=== PATIENT | male | born 1960 | race Caucasian/White ===

== ENCOUNTER → 2016-08-14 | Outpatient (CLI) | payer BC ==
[~2016-08-14] MED LIST: ACETAMINOPHEN325 M1 PO; ANDROGEL5 GM TOP; ANDROGEL75 GM TOP; CARAFATE 1 GM TA1 G1 PO; CEFAZOLIN 1GM VI1 G1 IV; CELEBREX 200 M200 M1 PO; CELEBREX 200 M200 MG PO; CLOBEX118 ML TOP; CORTEF5 MG PO; DILAUDID-H10 MG/1 M1 SUBQ; ENBREL 25 MG KI25 M1 SC; ENBREL INJ; ERYTHROMYCIN250 MG PO; FOLIC ACID1 MG PO; GLUCOPHAGE XR500 MG PO; GLUCOSAMIN-CHO1 EACH PO; HUMIRA20 MG/0.4 SQ; HYDROCODON-ACE1 EAC5 PO; HYDROMORPHO2 MG/1 M5 INTRATHECA; KEFLEX500 MG PO; LISINOPRIL10 MG PO; LYRICA 50 MG50 MG PO; MEDROLDOSEPACK PO; METFORMIN; MIRALAX17 GM PO; MORPHINE 2 IT; NEURONTIN 300300 M1 PO; ORENCIA125 MG/1 M SQ; PERCOCET 10-321 EACH PO; PERCOCET 2.5-31 EACH PO; PERCOCET 7.5-31 EACH PO; PROTONIX IV40 MG PO; PROTONIX40 M2 PO; RED YEAST RICE600 MG PO; RESTASIS1 EACH OPHTHALMIC; ROBAXIN500 MG PO; SINUS RELIEF15 ML SPRAY; STELARA90 MG/1 ML INJECTION; TOPICAL CREAM; TRAMADOL 50 MG50 MG PO; VALIUM10 MG PO; VALIUM2 MG PO; VITAMIN D400 UNIT/1 PO; WELCHOL 625 MG625 MG PO; XIIDRA1 EACH OP; ZOFRAN4 MG PO; [UNRECOGNIZED DRUG - CODE] PO; [UNRECOGNIZED DRUG - OTHER] INJ; hydromorphone IT
--- NOTE | ~2016-08-14 | HPC ---
[facility] [place] [address] PAIN MANAGEMENT CONSULTATION Name: SIMÓN PARHAM Room #: REG CLI M.Celena.#: [id number] Admission: 08/14/16 Attend Phys: Rio Sheehan MD Discharge: Date of : 56 Report #: [id number] THIS REPORT FOR: //name// CC: Rio Trinidad MD DATE OF SERVICE: 08/14/2016 Followup visit for management of intrathecal infusion pump. The patient returns today to the pain clinic to refill his pump. Last time in March. At that time, I felt he was severely depressed, very dysphoric and seemed despondent and hopeless. We counseled a bit during that visit as well as provided his medication and he was directed towards wellness programs, exercise and remaining active. Today, he presents having lost 20 pounds. 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 His conversation is more positive and upbeat. I think the change is related to his weight loss and his improvement in general activity. Hopefully, this will continue. He follows with Dr. Rasheed Trinidad, who provides many of his medications. I have been providing under our agreement. His intrathecal medication has been no oral medications. He is on dose hydromorphone at 4.5 mg a day and we will stick to that for right now. PHYSICAL EXAMINATION: NEUROLOGIC: Affect is pleasant. shows no signs of anxiety or depression today. VITAL SIGNS: His blood pressure is 135/80, heart rate is 80. MUSCULOSKELETAL: Moves easily from a sitting to standing position, ambulates to the examining table without difficulty. HEENT: He does have significant conjunctivitis, which he says is related to a condition that is followed by Dr. Chamorro. He is on a biologic medication and I questioned him about Sjogren's syndrome. This was a new term for him. CARDIAC: Rhythm is regular. CHEST: Clear. IMPRESSION: 1. Chronic intractable low back pain with post laminectomy syndrome. 2. Depression, much improved. 3. Osteoarthritis, bilateral hips. 4. Management of intrathecal infusion pump with refill and reprogramming. DESCRIPTION OF PROCEDURE: Skin was prepped with ChloraPrep. Skin anesthetized [facility] [address] [place] [address] PAIN MANAGEMENT CONSULTATION Name: SIMÓN PARHAM Room #: REG [facility].#: [id number] Admission: 08/14/16 Attend Phys: Rio Sheehan MD Discharge: Date of : 56 Report #: [id number] and a 22-gauge non-coring needle advanced into the pump. Old medication was removed and discarded. He was appropriate for programmed amount. We received 2.2 mL and that was exactly what was programmed. It was discarded appropriately. Pump was then refilled with hydromorphone 15 mg per mL and reprogramming session was performed. This was all checked. Copy was given to the patient. He was discharged with a followup visit scheduled in about 4-6 months. By: [id number] Rio Sheehan MD /juliana
== END | disposition home or self-care (01) ==
LOC: PAIN 06:48
DX: M96.1 Postlaminectomy syndrome, not elsewhere classified (principal); G89.29 Other chronic pain; F32.89 Other specified depressive episodes; M16.0 Bilateral primary osteoarthritis of hip; G47.33 Obstructive sleep apnea (adult) (pediatric); Z88.8 Allergy status to other drugs, medicaments and biological substances; Z98.890 Other specified postprocedural states

== ENCOUNTER → 2016-10-26 | Outpatient (CLI) | payer BC | LOC: SLEEPLAB 12:39 | DX: G47.33 Obstructive sleep apnea (adult) (pediatric) (principal) ==

== ENCOUNTER → 2016-12-14 | Outpatient (CLI) | payer BC ==
[~2016-12-14] VITALS: Ht 172.7 cm; Wt 85.5 kg
--- NOTE | ~2016-12-14 | HPC ---
[facility] [address] [place] [address] PAIN MANAGEMENT CONSULTATION Name: SIMÓN PARHAM Room #: REG CLI M.R.#: [id number] Admission: 12/14/16 Attend Phys: Rio Sheehan MD Discharge: Date of : 56 Report #: [id number] THIS REPORT FOR: //name// CC: Rio Trinidad MD DATE OF SERVICE: 12/14/2016 Followup visit for management of intrathecal infusion pump. The patient presents back to the pain clinic today in followup for me to refill his pump. I see him at intervals of roughly 120 days. We have had a longstanding relationship. His current infusion is hydromorphone 4.5 mg a day and this has managed his pain fairly well. He has had a number of medical issues well documented and followed by Dr. Trinidad including hypertension and depression. He has had some sleep issues as well. Since last visit here, he has been experiencing what he describes as blackout spells. These by description are more than just diversion and distraction. He will be he has "checked out" for a short time and he has no recollection. He also reports to me that he is experiencing some short term memory loss and is having trouble with names. These have also been associated with dizziness. The most concerning of these spells occurred when he was driving. That makes him I think he needs to follow up with Dr. Trinidad and perhaps we should have him see a neurologist. I did review his medications today to see if we can come up with potential medication related cause. Because of his poor sleep, he was referred for a sleep study to [facility]. Dr. Tulio Carrillo recommended the study. The patient felt that the study was suboptimal and may pursue a second study elsewhere. He had questions today about the effect of his intrathecal opioids on the sleep study and without question, there will be some effect on breathing even with intrathecal opioids, although we feel that it is much less than if he was on equipotent oral opioids. He has done well for many years on these medications and I do not believe that he has any interest in coming off of intrathecal opioids given the benefits he has had for pain control. MEDICATIONS: Currently Stelara, vitamin D, Clobex, Restasis, MiraLax, AndroGel, red yeast, Welchol, Protonix, he has oxycodone, but takes it very infrequently only 2-3 in the last month or so. PHYSICAL EXAMINATION: He has lost quite a bit of weight, he is down to 188.6 and this is purposeful. He looks good, but he has not worked out very much so. His muscle mass is also diminished. He plans to start a gradual weight program and will be cautious. Much of his back problems he feels is from a previous [facility] [address] [place] [address] PAIN MANAGEMENT CONSULTATION Name: SIMÓN PARHAM Room #: REG CLI ..#: [id number] Admission: 12/14/16 Attend Phys: Rio Sheehan MD Discharge: Date of : 56 Report #: [id number] weight program. Blood pressure is 123/83, heart rate is 85, and respirations 14. Pump is in the right lower abdomen, nontender. He has some diffuse shoulder pain and knee pain that he scores as a 4-5 today. Some pain and numbness radiating into the anterior thigh, which is likely meralgia paresthetica. IMPRESSION: 1. Chronic intractable back pain. 2. Management of intrathecal infusion pump. PROCEDURE: Refill of intrathecal infusion pump reprogramming. Skin was prepped with ChloraPrep, skin anesthetized and a 22-gauge non-coring needle advanced in the pump. Old medication removed and discarded. We had nearly exactly what we expected. 3.4 reservoir volume about 3.2 was retrieved and discarded per protocol. Pump was then refilled with hydromorphone and reprogrammed to provide 4.5 mg per day. Low reservoir alarm date is now 04/16/2017, and his SALVATORE is 51 months on his second pump. Follow up visit planned in 2018. <ELECTRONICALLY SIGNED> By: Rio Sheehan MD 12/15/16 1322 1601 51 Rio Sheehan MD /nt
[2016-12-14 12:49] VITALS: BP 123/83
== END | disposition home or self-care (01) ==
LOC: PAIN 07:08
DX: Z45.1 Encounter for adjustment and management of infusion pump (principal); G89.29 Other chronic pain

== ENCOUNTER → 2017-04-16 | Outpatient (CLI) | payer BC ==
[~2017-04-16] VITALS: Ht 172.7 cm; Wt 88.2 kg
[~2017-04-16] MED LIST changes: +CLOMIPHENE CITR50 MG PO; +NUVIGIL250 MG PO
--- NOTE | ~2017-04-16 | HPC ---
[facility] [address] [place] [address] PAIN MANAGEMENT CONSULTATION Name: SIMÓN PARHAM Room #: REG CLI M.R.#: [id number] Admission: 04/16/17 Attend Phys: Rio Sheehan MD Discharge: Date of : 56 Report #: [id number] THIS REPORT FOR: //name// CC: Rio Trinidad MD DATE OF SERVICE: 04/16/2017 Followup visit for refill of intrathecal infusion pump and counseling regarding chronic pain. The patient presents to the pain clinic today and reports that he is having harder and harder time. 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 It is really hard for him to get around in the car. Riding in the car is perhaps his most painful activity and this is one of the more regular things he has to do in his job and he has to travel. He has been taking additional pain medications prescribed by Dr. Trinidad and this is affected his thoughts and he has at time had trouble with short-term memory. He is concerned about that. He has an intrathecal pump that is providing hydromorphone. We have kept its dose fairly steady. He feels that it affects his breathing at night when he is at higher dose and we respected that assessment. He has had several sleep studies and knows that his sleep is disrupted at times. He has struggled at times in the past with depression and anxiety. He seems to be better at this time with the current regimen of medications that are balanced by Dr. Trinidad. Today, he reports his pain score as a 6/10, worse with standing across his low back radiating down into his groin and his legs. PHYSICAL EXAMINATION: Blood pressure is 124/74, heart rate 72, respirations are 16 and BMI is 29.6. He has lost a bit of weight. He is pleasant, alert and oriented. Does not appear to be anxious or depressed today. He has tenderness across his low back. He has pain into his groins. He has bilateral straight leg raising discomfort. IMPRESSION: 1. Chronic intractable back pain. 2. Management of intrathecal infusion. I have refilled the intrathecal infusion pump today and reprogrammed it. PROCEDURE: Skin was prepped with ChloraPrep and anesthetized. A 22-gauge non-coring needle advanced to pump. Old medication removed and discarded. Pump [facility] [address] [place] [address] PAIN MANAGEMENT CONSULTATION Name: SIMÓN PARHAM Room #: REG CL Carlos.#: [id number] Admission: 04/16/17 Attend Phys: Rio Sheehan MD Discharge: Date of : 56 Report #: [id number] was refilled with hydromorphone 15 mg per mL and reprogramming session performed. His next alarm date was noted on the medical record and he was given a copy of the programming information. He was given additional counseling about perhaps taking a disability from his work. I will see him back in the pain clinic in 2-3 months for pump refill. I do think that it is getting much harder and more challenging for the patient to continue at his job. <ELECTRONICALLY SIGNED> By: Rio Sheehan MD 04/25/17 1640 [id number] Rio Sheehan MD /nt
[2017-04-16 13:25] VITALS: BP 124/64
== END | disposition home or self-care (01) ==
LOC: PAIN 02-02 07:25
DX: Z45.1 Encounter for adjustment and management of infusion pump (principal); F32.9 Major depressive disorder, single episode, unspecified; F41.9 Anxiety disorder, unspecified; G89.29 Other chronic pain

== ENCOUNTER → 2017-06-12 | Outpatient (CLI) | payer BC ==
[~2017-06-12] VITALS: Ht 170.2 cm; Wt 90.5 kg
[~2017-06-12] MED LIST changes: -CLOMIPHENE CITR50 MG PO; -NUVIGIL250 MG PO
--- NOTE | ~2017-06-12 | HPC ---
[facility] [address] [address] PAIN MANAGEMENT CONSULTATION Name: SIMÓN PARHAM Room #: REG CLI MMeng.#: [id number] Admission: 06/12/17 Attend Phys: Rio Sheehan MD Discharge: Date of : 56 Report #: [id number] THIS REPORT FOR: //name// CC: Rio Trinidad DATE OF SERVICE: 06/12/2017 Followup visit for intrathecal pump adjustment due to increasing pain and consultation regarding chronic pain. The patient returns to the pain clinic today for an adjustment of his intrathecal infusion pump. His pain is worsening. He scores it as an 8/10. He describes pain across his low back and occasionally into his legs. He also has pain into his hips described as crushing. It is hard for him to stand or sleep on his side. He is able to get relief from his intrathecal pump and he is grateful for that. It is harder and harder for him to travel in the car. He is hoping that he may be able to back off on work. He is considering a disability. PAST HISTORY: Significant for two back surgeries, two shoulder surgeries, repair of a knee injury and ulnar nerve surgery in 2012. His intrathecal pump was placed over 10 years ago ____ in 2006. He suffered from some hypertension. He has had situational depression in the past and we had a long discussion today about his past battles with pain. We talked about the biopsychosocial components of pain and the common finding of low mood and depression that can be associated with pain. He feels that he has a handle on this and he also feels that his depression should be blamed on his antidepressant medication to which he had a paradoxical response. He has been better off of antidepressants, but as noted has had periods of time where the pain has led to more challenges. I did not provide any oral medication for him. PHYSICAL EXAMINATION: He is pleasant, alert and oriented. He has lost some weight. His BMI is 31. His blood pressure is 116/66, heart rate is 61 and respirations 16. He moves easily from sitting to standing position. He has tenderness throughout the neck and upper back. He has pain across the low back from his incisions. He has a pump in the right lower quadrant of the abdomen that is nontender. IMPRESSION: 1. Chronic intractable pain with multiple generators, primarily back and neck and shoulder pain as well. 2. Management of intrathecal infusion pump. [facility] [address] [place] [address] PAIN MANAGEMENT CONSULTATION Name: SIMÓN PARHAM Room #: REG CLI [facility]#: [id number] Admission: 06/12/17 Attend Phys: Rio Sheehan MD Discharge: Date of : 56 Report #: [id number] PROCEDURE: The pump was reprogrammed to provide an increase of 11% to his hydromorphone from 4.5 mg a day to 5.0 mg per day. His new reservoir alarm date is 08/12. He was discharged. A 25-minute followup visit with counseling plus reprogramming. By: [id number] Roi Sheehan MD /nt
[2017-06-12 11:08] VITALS: BP 116/66
== END | disposition home or self-care (01) ==
LOC: PAIN 07:09
DX: Z45.1 Encounter for adjustment and management of infusion pump (principal); G89.29 Other chronic pain; Z96.9 Presence of functional implant, unspecified; G47.33 Obstructive sleep apnea (adult) (pediatric); Z91.040 Latex allergy status; Z88.8 Allergy status to other drugs, medicaments and biological substances; Z79.891 Long term (current) use of opiate analgesic

== ENCOUNTER → 2017-08-09 | Outpatient (CLI) | payer BC ==
[~2017-08-09] VITALS: Ht 170.2 cm; Wt 89.4 kg
[~2017-08-09] MED LIST changes: +CLOMIPHENE CITR50 MG PO
--- NOTE | ~2017-08-09 | HPC ---
[facility] [address] [address] PAIN MANAGEMENT CONSULTATION Name: SIMÓN PARHAM Room #: REG CLI GlennaNishCelena.#: [id number] Admission: 08/09/17 Attend Phys: Rio Sheehan MD Discharge: Date of : 56 Report #: [id number] THIS REPORT FOR: //name// CC: Rio Trinidad DATE OF SERVICE: 08/09/2017 Followup visit for management of intrathecal infusion pump with refill. The patient returns to pain clinic today with his . He is here for refill of his intrathecal pump, which is infusing monotherapy hydromorphone. He is now retired. We talked about his plans. He has an appointment with Dr. Marques to evaluate an MRI which has just been taken. He has pain right at the base of his lumbar spine. It is likely that some of this pain is related to the L5-S1 level where he has an artificial disk and it is not fused. There may be hypermobility in that region. I told him that I would be happy to review those films as well. He has been told that he may have some myelopathy. He was evaluated today and was found to be normal in the upper and lower extremities as far as reflexes goes. At one time, there was some concern due to his thoracic disk protrusions. He had some concerns at T11-T12 as well as at T7-T8. He has had laminectomy in that region and the canal should be opened. PHYSICAL EXAMINATION: GENERAL: He has lost some weight and looks a bit more fit. His affect today is pleasant without signs of depression. VITAL SIGNS: Blood pressure 131/82, heart rate 71, respirations 16. Pain intensity 8-9. BMI 30.8. EXTREMITIES: Tenderness throughout his scars and also at the base of the scar in the lumbosacral region. He has pain with forward flexion and extension. Deep tendon reflexes in the upper extremity and lower extremity are 1+ with no evidence of hyperreflexia. IMPRESSION: 1. Chronic low back pain with multiple pain generators in the thoracic and lumbar spine primarily today. He did not mention his shoulder. 2. Management of intrathecal infusion pump with refill and reprogramming. PROCEDURE: Skin was prepped with ChloraPrep. Skin anesthetized and a 22-gauge non-coring needle advanced in the intrathecal pump. Old medication removed and discarded. Pump refilled with hydromorphone 50 mg per mL and a reprogramming [facility] [address] [place] [address] PAIN MANAGEMENT CONSULTATION Name: SIMÓN PARHAM Room #: REG CLI MR#: [id number] Admission: 08/09/17 Attend Phys: Rio Sheehan MD Discharge: Date of : 56 Report #: [id number] session performed to provide a daily infusion of 5 mg of hydromorphone. Low reservoir alarm date is now on 11/29/2017. His SALVATORE is 44 months. By: [id number] [id number] MD mark Marte
[2017-08-09 13:01] VITALS: BP 131/82
== END | disposition home or self-care (01) ==
LOC: PAIN 06:55
DX: Z45.1 Encounter for adjustment and management of infusion pump (principal); G89.29 Other chronic pain; Z68.30 Body mass index [BMI] 30.0-30.9, adult

== ENCOUNTER → 2017-11-26 | Outpatient (CLI) | payer BC ==
[~2017-11-26] VITALS: Ht 172.7 cm; Wt 86.6 kg
[~2017-11-26] MED LIST changes: +NUVIGIL250 MG PO
--- NOTE | ~2017-11-26 | HPC ---
[facility] [address] [address] PAIN MANAGEMENT CONSULTATION Name: SIMÓN PARHAM Room #: REG CLI Carlos.#: [id number] Admission: 11/26/17 Attend Phys: Rio Sheehan MD Discharge: Date of : 56 Report #: [id number] THIS REPORT FOR: //name// CC: POOJA Trinidad DATE OF SERVICE: 11/26/2017 Followup visit for chronic low back pain, post-laminectomy syndrome with radiculopathy. The patient presents to pain clinic today with his . 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 He complains of pain once again in multiple locations. He has, however, retired and seems to be more relaxed. He seems less depressed and was actually joking and upbeat today. His pain is mostly in his very low back radiating into his hips, and he describes it as a crushing, burning sensation. Another descriptor is of sensation like sandpaper to his hips. Intensity 6-7/10. Since losing weight and taking disability, he has done better, but is constantly looking for other ways to get his pain under better control. We in the past have talked about spinal cord stimulation, but today, I spent 25 minutes reviewing it with him in great detail, talking about 4 different companies, now 5 actually, that are providing these devices and the pros and cons, risks and benefits. I think he is a reasonable candidate, and he would be actually the third patient in our practice who might go forward with a spinal cord stimulation trial while already receiving medication through an intrathecal pump. I saw one of those patients today in the clinic who had a dramatic and remarkable improvement in her leg pain once the spinal cord stimulator was placed. We have been able to limit some of her oral medications that would be a goal also for check. 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 VITAL SIGNS: His blood pressure is 136/77, heart rate 57, respirations 14, his BMI is now 29. He has done a nice job of losing weight and dieting. Moves easily from sitting to standing position. He has some restrictions in range of motion of the lumbar spine. He has local tenderness across the scar in the back. He has positive straight leg raising, reproduces some pain into the hips. It does not radiate much further. IMPRESSION: 1. Chronic low back pain with radiculopathy, post-laminectomy syndrome. [address] [address] PAIN MANAGEMENT CONSULTATION Name: SIMÓN PARHAM Room #: REG CLI Devyn#: [id number] Admission: 11/26/17 Attend Phys: Rio Sheehan MD Discharge: Date of : 56 Report #: [id number] 2. Management of intrathecal infusion pump, which will require refill today. PLAN: 1. I will start the process for preauthorization for spinal cord stimulator trial. 2. Refill and reprogramming. Skin was prepped with ChloraPrep and anesthetized. A 22-gauge non-coring needle advanced into the intrathecal pump. Old medication was removed and discarded. Pump was refilled with hydromorphone 15 mg/mL. Reprogramming session was performed and checked by myself and the nurse. No adjustments in his medication dose at this time. Daily dose will be hydromorphone 5 mg per day, and his next refill is scheduled for 03/18/2018. We may have completed his trial by that time. Followup visit planned as needed. By: [id number] Rio Sheehan MD /nt
[2017-11-26 12:39] VITALS: BP 136/77
== END | disposition home or self-care (01) ==
LOC: PAIN 07:37
DX: Z45.1 Encounter for adjustment and management of infusion pump (principal); M54.16 Radiculopathy, lumbar region; M96.1 Postlaminectomy syndrome, not elsewhere classified; G89.29 Other chronic pain; Z79.891 Long term (current) use of opiate analgesic; G47.33 Obstructive sleep apnea (adult) (pediatric); Z91.040 Latex allergy status; Z88.8 Allergy status to other drugs, medicaments and biological substances; Z79.899 Other long term (current) drug therapy

== ENCOUNTER → 2018-02-04 | Outpatient (CLI) | payer BC ==
[~2018-02-04] VITALS: Ht 170.2 cm; Wt 87.1 kg
[~2018-02-04] MED LIST changes: +ACYCLOVIR 200200 MG PO; +ACYCLOVIR15 GM TOP; +COLESEVELAM HC625 MG PO
--- NOTE | ~2018-02-04 | HPC ---
[facility] [place] [address] PAIN MANAGEMENT CONSULTATION Name: SIMÓN PARHAM Room #: REG CLI MMeng.#: [id number] Admission: 02/04/18 Attend Phys: Rio Sheehan MD Discharge: Date of : 56 Report #: [id number] THIS REPORT FOR: //name// CC: Rio Trinidad MD DATE OF SERVICE: 02/04/2018 Followup visit for planned spinal cord stimulation trial. The patient is in the clinic today in a gown, ready to begin his spinal cord stimulation trial. Before we began, he told us that he had had a pussy-looking substance coming from underneath the toe on his right foot and that he had been soaking it all weekend long. I examined the toe. There is redness, but no obvious signs of suppuration. Nonetheless, given the potential risk for infection seating the epidural space even with preoperative antibiotics, I have elected to postpone his elective spinal cord stimulator lead placement trial. We have discussed this on multiple visits in the past. The patient and his , however, used the opportunity of their visit today to review the procedure in detail to discuss the various providers of intrathecal therapies including [employer], [employer] and Nevro. There were multiple questions asked and answered about the benefits and risks of percutaneously placed permanent leads versus paddle leads, which require a small laminotomy. Potential risks including infection, failure of therapy and unreasonable expectations were reviewed in great detail. Time spent in counseling the patient and his today was 45 minutes. Our plan is to postpone placement. I do not feel at this point in time, he needs an antibiotic for his toe, but we will discuss with Infectious Disease. I would like to wait at least 7-10 days before we consider implant once again. The risk of infection remains one of the greatest setbacks in this therapy, we must be cautious and diligent. Followup visit is scheduled once all criteria have been met. We will place a trial at that time. Current plan is to go forward with a Nevro trial and if so, may consider percutaneous lead plant for MRI safety. He and his will consider the possible option of a Medtronic paddle lead, which is MRI compatibility at this time. A 45-minute consult and followup visit. By: [id number] Rio Sheehan MD /nt
[2018-02-04 07:13] VITALS: BP 116/70
== END ==
LOC: PAIN 00:29
DX: M54.5 Low back pain (principal); M79.671 Pain in right foot; G89.29 Other chronic pain; R23.8 Other skin changes; Z79.899 Other long term (current) drug therapy

== ENCOUNTER → 2018-02-11 | Outpatient (CLI) | payer BC ==
[~2018-02-11] VITALS: Ht 170.2 cm; Wt 89.8 kg
--- NOTE | ~2018-02-11 | HPC ---
[facility] [place] [address] PAIN MANAGEMENT CONSULTATION Name: SIMÓN PARHAM Room #: REG CLI MMeng.#: [id number] Admission: 02/11/18 Attend Phys: Rio Sheehan MD Discharge: Date of : 56 Report #: [id number] THIS REPORT FOR: //name// CC: POOJA Trinidad DATE OF SERVICE: 02/11/2018 PROCEDURE Trial of Nevro spinal cord stimulation (procedure aborted). ANESTHESIA: Versed. INDICATIONS FOR PROCEDURE: Post-laminectomy syndrome with radiculopathy. DESCRIPTION OF PROCEDURE: After delay of last week, the patient is here today for trial of his stimulation. He has had no febrile incidence and all open wounds have healed. We reviewed the procedure once again, risks and benefits, and he is anxious to proceed after much discussion. He was taken to the procedure room and monitored with pulse oximetry and electrocardiogram, blood pressure. He was placed in the prone position. Fluoroscopic guidance was used to assist with the procedure. Skin was prepped and draped in the usual fashion and sterile technique was used throughout. He was given 1 gram of intravenous Ancef prior to the procedure. The skin was anesthetized first on the right just below the T11-T10 interspace. His direct entry midwife is narrow for the Nevro system due to the laminectomy performed at T11-T12. The skin was anesthetized, and a 14-gauge Tuohy type curved epidural needle was advanced into the epidural space with loss of resistance technique. Two attempts were made to advance the needle, but I was unable to advance the needle easily. Saline was injected up to 5 mL into the epidural space. An attempt was once again made. I was able to enter the epidural space on each attempt at that short distance, but the lead would not advance further. The needles were removed. The skin was then anesthetized on the left with 1% lidocaine. The 14-gauge needle was then advanced into the epidural space at that level T10-T11, again entering the epidural space with loss of resistance on 2 separate occasions. Lead advancement was unsuccessful. I could get about 1 cm into the epidural space, but no further. There were no paresthesias. There was no discomfort. We considered further options, which would include typically moving to another interspace. On a caudad direction, we are limited due to his prior laminectomy. In the cephalad direction, we would be too high to allow for the placement of the Nevro leads. I had spent 30 minutes in several attempts to place leads, and at that point, I felt in the best interest of the patient, in the interest of safety that the procedure would be aborted. I informed Jose Juan that our first goal was to do no harm and that I felt that if we proceeded more aggressively that [address] [address] PAIN MANAGEMENT CONSULTATION Name: SIMÓN PARHAM Room #: REG CLI Devyn#: [id number] Admission: 02/11/18 Attend Phys: Rio Sheehan MD Discharge: Date of : 56 Report #: [id number] there was a risk, particularly at the thoracic level when placing a large epidural needle. The drape was removed. Skin cleansed and Band-Aid placed. He was taken to recovery room where ice was applied for 15-20 minutes. I spent time following the procedure again discussing our failure to place a lead to proceed with the trial. Disappointment of course across the board for patient and physician alike. I know in the past Dr. Marques had suggested for patients who are adamant to proceed with a trial that the paddle lead can be placed for trial; however, in my opinion, the scar tissue limiting the placement of the percutaneous lead may also be a challenge for a paddle lead, and I would not advise in that direction. We will of course discuss further options going forward. He has an intrathecal pump, which has been utilized over time. He feels that it causes him to have memory issues, and I reassured him that one of the purposes for the intrathecal pump is to provide small amounts of opioid medication intrathecally which works on the spinal level and has a far fewer central side effects including the central effects. We will continue with those medications at this time. I will follow up by phone tonight and tomorrow to make sure that there were no complications or issues regarding his trial, which was unsuccessful today. By: [id number] Rio Sheehan MD /nt
[2018-02-11 07:08] VITALS: BP 129/78
== END | disposition home or self-care (01) ==
LOC: PAIN 07:01
DX: M54.16 Radiculopathy, lumbar region (principal); M96.1 Postlaminectomy syndrome, not elsewhere classified; G47.30 Sleep apnea, unspecified; Z91.040 Latex allergy status; Z88.8 Allergy status to other drugs, medicaments and biological substances; Z79.899 Other long term (current) drug therapy

== ENCOUNTER → 2018-03-14 | Outpatient (CLI) | payer BC ==
[~2018-03-14] VITALS: Ht 170.2 cm; Wt 93.6 kg
--- NOTE | ~2018-03-14 | HPC ---
[facility] [address] [place] [address] PAIN MANAGEMENT CONSULTATION Name: SIMÓN PARHAM Room #: REG CLI MMeng.#: [id number] Admission: 03/14/18 Attend Phys: Rio Sheehan MD Discharge: Date of : 56 Report #: [id number] THIS REPORT FOR: //name// CC: Rio Trinidad DATE OF SERVICE: 03/14/2018 Followup visit for chronic intractable pain, post-laminectomy syndrome with radiculopathy. The patient returns today for refill and reprogramming of his intrathecal infusion pump. We reviewed once again his failed spinal cord stimulation trial. I would not recommend repeating it. An aggressive approach would be needed with a surgical cutdown above his laminectomy at T11-T12 in order to enter the epidural space above. I would be concerned to more harm than good would come from this more aggressive approach. We were both disappointed that I was not able to enter the epidural space above the level of this lamina. Today, his pain score is 3. He has been undergoing a new treatment with his physical therapist. He sent me the contact information. It is blood flow restriction training. This has received some support by few practitioners. I have asked him to continue to report back to me on how he feels if this is helping his legs. He is trying to prepare himself for possible total joint replacement. He complains in part of arthropathy that involves the knee, worse on the left than the right. He is upbeat and positive today. He and his moved going to [employer] [facility] [employer], getting away from this blizzard winter weather. PHYSICAL EXAMINATION: Pleasant, alert and oriented. No signs of overmedication, depression or anxiety. Pain score 3/10. Moves easily from sitting to standing position, ambulates with a good stable gait. Tenderness across his low back is noted. Tenderness of the knee is also present on the left. Mild crepitus. IMPRESSION: Chronic intractable pain with multiple pain generators including low back, post-laminectomy syndrome and osteoarthritis of the left knee. PROCEDURE: Refill and reprogramming of intrathecal infusion pump. Skin was prepped with ChloraPrep. Skin anesthetized and a 22-gauge non-coring needle advanced in the pump. Old medication removed and discarded. Pump was then refilled with monotherapy hydromorphone 15 mg per mL and reprogramming [address] [address] PAIN MANAGEMENT CONSULTATION Name: SIMÓN PARHAM Room #: REG CLKiran Shepard#: [id number] Admission: 03/14/18 Attend Phys: Rio Sheehan MD Discharge: Date of : 56 Report #: [id number] session was completed. His daily dose of hydromorphone is 3 mg. His next refill is scheduled on 07/04/2018. By: [id number] Rio Sheehan MD /nt
[2018-03-14 09:52] VITALS: BP 133/66
--- NOTE | 2018-03-14 10:06 | NUR ---
Pain Clinic Assessment: 1. History of Osteoarthritis: Right Lower Extremity History of Rheumatoid Arthritis: Not Applicable 2. Height: 5 ft. 7 in. 170.2 cm. Weight: 206.4 lb. oz. 93.623 kg. Patient's BMI: 32.3 3. Vital Signs: BP: 133/66 Pulse: 71 Resp: 16 Temp: 02 Sat: 99 ECG Mon: 4. Pain Intensity: 3 5. Fall Risk: Dizziness: Y Needs help standing or walking: N Fallen in the last 3 months: N Fall risk comments: 6. Patient on Blood Thinner: None 7. History of Hypertension: N 8. Opioid Therapy greater than 6 weeks: Y Opiate Contract Signed: 9. Risk Assessment Tool Provided: DR MARIE 10. Functional Assessment Tool: 11. Recreational Drug Use: Never Drug Type: Tobacco Use: Never Smoker Tobacco Type: Amount or Packs/day: How Many Years: Alcohol Use: Yes Frequency: Special Occasions Quant: 5
== END | disposition home or self-care (01) ==
LOC: PAIN 06:52
DX: Z45.1 Encounter for adjustment and management of infusion pump (principal); M96.1 Postlaminectomy syndrome, not elsewhere classified; G89.29 Other chronic pain; M17.12 Unilateral primary osteoarthritis, left knee; M54.16 Radiculopathy, lumbar region; G47.30 Sleep apnea, unspecified; Z88.8 Allergy status to other drugs, medicaments and biological substances; Z79.899 Other long term (current) drug therapy

== ENCOUNTER → 2018-04-22 | Outpatient (CLI) | payer BC ==
[~2018-04-22] VITALS: Ht 170.2 cm; Wt 97.3 kg
[2018-04-22 13:18] VITALS: BP 145/90
--- NOTE | 2018-04-22 13:46 | NUR ---
Pain Clinic Assessment: 1. History of Osteoarthritis: Right Lower Extremity History of Rheumatoid Arthritis: Not Applicable 2. Height: 5 ft. 7 in. 170.2 cm. Weight: 214.6 lb. oz. 97.342 kg. Patient's BMI: 33.6 3. Vital Signs: BP: 145/90 Pulse: 86 Resp: 16 Temp: 02 Sat: 98 ECG Mon: 4. Pain Intensity: 7-8 5. Fall Risk: Dizziness: N Needs help standing or walking: N Fallen in the last 3 months: N Fall risk comments: 6. Patient on Blood Thinner: None 7. History of Hypertension: N 8. Opioid Therapy greater than 6 weeks: Y Opiate Contract Signed: 9. Risk Assessment Tool Provided: DR MARIE 10. Functional Assessment Tool: 11. Recreational Drug Use: Never Drug Type: Tobacco Use: Never Smoker Tobacco Type: Amount or Packs/day: How Many Years: Alcohol Use: Yes Frequency: Special Occasions Quant:
--- NOTE | 2018-04-29 07:40 | HPC ---
[facility] Justyn [place] [address] PAIN MANAGEMENT CONSULTATION Name: SIMÓN PARHAM Room #: REG CLI M.R.#: [id number] Admission: 04/22/18 ������������������ Attend Phys: Rio Sheehan MD Discharge: ������������������ Date of : 56 Report #: [id number] THIS REPORT FOR: //name// CC: Rio Trinidad DATE OF SERVICE: 04/22/2018 CHIEF COMPLAINT: Followup visit for pump adjustment. The patient made an appointment today to come in to see if we can turn up his intrathecal pump. With the cold weather, he is having some increasing pain, particularly in his low back and hips. The pump has been fairly effective. We talked about perhaps initiating a PTM device. Pain has been worsening as the day goes on. I have agreed to increase his pump settings by about 12%. He has hydromorphone as a monotherapy. I have increased his pump today with the it programmer from 5.0-5.6 and he was discharged. His next refill is now scheduled for before or on 06/26/2018. At that time, I will talk to him about a PTM device. ��������������������������������������������� <ELECTRONICALLY SIGNED> ���������������������������������������� By: Rio Sheehan MD ��������������������������������������������� 04/29/18 0740 [id number] Rio Sheehan MD /nt
== END | disposition home or self-care (01) ==
LOC: PAIN 08:30
DX: Z45.1 Encounter for adjustment and management of infusion pump (principal); M54.5 Low back pain; G89.29 Other chronic pain; G47.33 Obstructive sleep apnea (adult) (pediatric); Z91.040 Latex allergy status; Z88.8 Allergy status to other drugs, medicaments and biological substances; Z87.891 Personal history of nicotine dependence

== ENCOUNTER → 2018-06-24 | Outpatient (CLI) | payer BC ==
[~2018-06-24] VITALS: Ht 170.2 cm; Wt 97.7 kg
[~2018-06-24] MED LIST changes: +METHYLPHENIDATE5 MG PO
--- NOTE | ~2018-06-24 | HPC ---
[facility] [place] [address] PAIN MANAGEMENT CONSULTATION Name: SIMÓN PARHAM Room #: REG CLI MMeng.#: [id number] Admission: 06/24/18 ������������������ Attend Phys: Rio Sheehan MD Discharge: ������������������ Date of : 56 Report #: [id number] THIS REPORT FOR: //name// CC: Rio Trinidad DATE OF SERVICE: 06/24/2018 Followup visit for refill and reprogramming of intrathecal infusion pump and new onset low back pain, left lumbosacral segment. The patient was in clinic today for a 25-minute assessment as well as a refill and reprogramming of his intrathecal infusion pump. He has had significant increases in pain in his low back across the lumbosacral segment over the course of the last 6-8 months. He has had multiple surgeries in his lumbar spine with disk replacements at L5-S1 and L3-L4 followed by fusions of the L3 through the L5 segment. The L5-S1 segment is free from fusion and has some mobility with the artificial disk placement. It is in this region just to the left of midline where he has pain and is likely spondylitic. Today, he reports significant diffuse osteoarthritis involving right knee, right index finger, bilateral shoulders and lumbosacral spondylosis as well as mid thoracic spondylitic pain. His pain intensity is 8/10. He is not a fall risk, nor has he fallen in the last 3 months. He is not taking medication for hypertension nor is he on a blood thinner. He has completed an opioid agreement. Dr. Trinidad provides his oral medications, we manage his intrathecal infusion pump. Denies use of tobacco. Drinks alcohol on special occasions only. PHYSICAL EXAMINATION: GENERAL: Pleasant gentleman. VITAL SIGNS: Blood pressure is 123/69, heart rate 74, respirations 14. He is 5 feet 7 inches 214 pounds, BMI 33.7. MUSCULOSKELETAL: He can independently move from sitting to standing position and walks with mild antalgic features. He has limited range of motion of lumbar spine and tenderness across the left lumbosacral segment. It does not involve the sacroiliac joint nor does it radiate into the hip or down the leg as radiculopathy might. It appears to be fairly well localized. We x-rayed the spine and reviewed his pain while under the fluoroscope. It appears that the pain is located in the area of the L5-S1 facet joint. IMPRESSION: 1. Chronic back pain, post-laminectomy syndrome, failed back syndrome. [facility] [address] [place] [address] PAIN MANAGEMENT CONSULTATION Name: SIMÓN PARHAM Room #: REG CLI M.#: [id number] Admission: 06/24/18 ������������������ Attend Phys: Rio Sheehan MD Discharge: ������������������ Date of : 56 Report #: [id number] 2. Intrathecal infusion pump with refill and reprogramming. 3. Instability at L5-S1 with L5-S1 facet arthropathy. 4. Recurring depression. 5. Sleep disturbance with obstructive sleep apnea. 6. Osteoarthritis with multiple joint involvement. RECOMMENDATIONS: 1. We will bring him back for diagnostic medial branch blocks of the L4 medial branch and the L5 dorsal ramus. This will effectively denervate the L5-S1 facet joint, which is the only mobile joint in the lumbosacral segment in the area of his pain. 2. Refill and reprogramming intrathecal infusion pump. PROCEDURE: Skin was prepped with ChloraPrep and a 22-gauge non-coring needle advanced in the pump. Old medication removed and discarded. Pump was then refilled and reprogrammed without change. He will remain on hydromorphone as monotherapy at a rate of 5.6 mg per day. SALVATORE is in 2020. Followup visit planned for diagnostic medial branch nerve blocks for the unstable L5-S1 facet. ��������������������������������������������� ���������������������������������������� By: ��������������������������������������������� 1251 0710 Rio Sheehan MD /nt
[2018-06-24 10:21] VITALS: BP 123/69
--- NOTE | 2018-06-24 10:50 | NUR ---
Pain Clinic Assessment: 1. History of Osteoarthritis: R KNEE R INDEX FINGER B/L SHOULDERS BACK History of Rheumatoid Arthritis: Not Applicable 2. Height: 5 ft. 7 in. 170.2 cm. Weight: 215.4 lb. oz. 97.705 kg. Patient's BMI: 33.7 3. Vital Signs: BP: 123/69 Pulse: 74 Resp: 14 Temp: 02 Sat: 100 ECG Mon: 4. Pain Intensity: 8-TODAY 5. Fall Risk: Dizziness: N Needs help standing or walking: N Fallen in the last 3 months: N Fall risk comments: 6. Patient on Blood Thinner: None 7. History of Hypertension: N 8. Opioid Therapy greater than 6 weeks: Y Opiate Contract Signed: 9. Risk Assessment Tool Provided: DR MARIE 10. Functional Assessment Tool: 11. Recreational Drug Use: Never Drug Type: Tobacco Use: Never Smoker Tobacco Type: Amount or Packs/day: How Many Years: Alcohol Use: Yes Frequency: Special Occasions Quant: 1-2
== END | disposition home or self-care (01) ==
LOC: PAIN 06:46
DX: Z45.1 Encounter for adjustment and management of infusion pump (principal); G89.29 Other chronic pain; M96.1 Postlaminectomy syndrome, not elsewhere classified; M12.88 Other specific arthropathies, not elsewhere classified, other specified site; G47.33 Obstructive sleep apnea (adult) (pediatric); G47.30 Sleep apnea, unspecified; Z88.8 Allergy status to other drugs, medicaments and biological substances; Z91.040 Latex allergy status; Z79.899 Other long term (current) drug therapy

== ENCOUNTER → 2018-06-27 | Outpatient (CLI) | payer BC ==
[~2018-06-27] VITALS: Ht 170.2 cm; Wt 97.5 kg
--- NOTE | ~2018-06-27 | HPC ---
[address] [address] PAIN MANAGEMENT CONSULTATION Name: SIMÓN PARHAM Room #: REG CLI Carlos.#: [id number] Admission: 06/27/18 ������������������ Attend Phys: Rio Sheehan MD Discharge: ������������������ Date of : 56 Report #: [id number] THIS REPORT FOR: //name// CC: Rio Trinidad MD DATE OF SERVICE: 06/27/2018 Followup visit for medial branch nerve block L4 and dorsal ramus injection L5 for left-sided L5-S1 facet arthropathy. The patient was seen just a few days ago and we scheduled this procedure. He is off all blood thinners. We prepared to proceed with the injection. Reviewed the procedure, the rationale as described in his last visit and we also discussed chronic pain management for about 10-15 minutes [id number] before we went to the room for the procedure. His pain today is consistent with his previous visit. Pain across the lumbosacral segment, pain worse with back extension and localized tenderness left of midline. He has now some right-sided pain, but will treat just the left today. PROCEDURE: Medial branch nerve block L4, L5 dorsal ramus nerve block. After informed consent, he was taken to the fluoroscopic suite, placed prone, skin prepped with ChloraPrep. Skin anesthetized first over the left L5 transverse process. A 25-gauge needle was gently advanced into position at the medial junction with the superior articular process. After negative aspiration, I injected 1 mL of 0.5% bupivacaine mixed with 20 mg of triamcinolone. Needle was removed. C-arm was then adjusted and the sacral ala was identified. Skin anesthetized and a 25-gauge needle advanced into the position at the sacral ala, this overlying the L5 dorsal ramus. After negative aspiration, I injected 1 mL of 0.5% bupivacaine mixed with 20 mg of triamcinolone. He tolerated the procedure well. He was taken to the recovery room for short observation. Prior to discharge from the hospital, he was asked to walk and tried to provoke his pain. He scores his pain at 0. FOLLOWUP VISIT PLAN: We will potentially consider radiofrequency ablation of these nerves in the future if the pain is persistent and resistant to other treatment. ��������������������������������������������� ���������������������������������������� By: ��������������������������������������������� 1421 0550 Rio Sheehan MD /nt
[2018-06-27 08:58] VITALS: BP 121/71
--- NOTE | 2018-06-27 09:11 | NUR ---
Pain Clinic Assessment: 1. History of Osteoarthritis: R KNEE R INDEX FINGER B/L SHOULDERS BACK History of Rheumatoid Arthritis: Not Applicable 2. Height: 5 ft. 7 in. 170.2 cm. Weight: 215.0 lb. oz. 97.524 kg. Patient's BMI: 33.7 3. Vital Signs: BP: 121/71 Pulse: 73 Resp: 14 Temp: 02 Sat: 97 ECG Mon: 4. Pain Intensity: 7-TODAY 5. Fall Risk: Dizziness: N Needs help standing or walking: N Fallen in the last 3 months: N Fall risk comments: 6. Patient on Blood Thinner: None 7. History of Hypertension: N 8. Opioid Therapy greater than 6 weeks: Y Opiate Contract Signed: 9. Risk Assessment Tool Provided: DR MARIE 10. Functional Assessment Tool: 11. Recreational Drug Use: Never Drug Type: Tobacco Use: Never Smoker Tobacco Type: Amount or Packs/day: How Many Years: Alcohol Use: Yes Frequency: Quant:
== END | disposition home or self-care (01) ==
LOC: PAIN 06:49
DX: M47.816 Spondylosis without myelopathy or radiculopathy, lumbar region (principal); G89.29 Other chronic pain; G47.33 Obstructive sleep apnea (adult) (pediatric); M19.90 Unspecified osteoarthritis, unspecified site; Z91.040 Latex allergy status; Z88.8 Allergy status to other drugs, medicaments and biological substances; Z79.899 Other long term (current) drug therapy

== ENCOUNTER → 2018-08-15 | Outpatient (CLI) | payer BC ==
[~2018-08-15] VITALS: Ht 170.2 cm; Wt 94.4 kg
[2018-08-15 09:16] VITALS: BP 108/68
--- NOTE | 2018-08-15 09:19 | NUR ---
Pain Clinic Assessment: 1. History of Osteoarthritis: R KNEE R INDEX FINGER B/L SHOULDERS BACK History of Rheumatoid Arthritis: Not Applicable 2. Height: 5 ft. 7 in. 170.2 cm. Weight: 208.2 lb. oz. 94.439 kg. Patient's BMI: 40.7 3. Vital Signs: BP: 108/68 Pulse: 72 Resp: 16 Temp: 02 Sat: 95 ECG Mon: 4. Pain Intensity: 7 5. Fall Risk: Dizziness: N Needs help standing or walking: N Fallen in the last 3 months: N Fall risk comments: 6. Patient on Blood Thinner: None 7. History of Hypertension: N 8. Opioid Therapy greater than 6 weeks: Y Opiate Contract Signed: 9. Risk Assessment Tool Provided: DR MARIE 10. Functional Assessment Tool: 11. Recreational Drug Use: Never Drug Type: Tobacco Use: Never Smoker Tobacco Type: Amount or Packs/day: How Many Years: Alcohol Use: Yes Frequency: Special Occasions Quant:
--- NOTE | 2018-08-27 17:25 | HPC ---
[facility] Justyn [place]gar [place] [address] PAIN MANAGEMENT CONSULTATION Name: SIMÓN PARHAM Room #: REG CLI MNishCelena.#: [id number] Admission: 08/15/18 ������������������ Attend Phys: Rio Sheehan MD Discharge: ������������������ Date of : 56 Report #: [id number] THIS REPORT FOR: //name// CC: Rio Trinidad MD DATE OF SERVICE: 08/15/2018 Followup visit for low back pain without radiation. The patient returns to the pain clinic today for medial branch nerve blocks. We have performed this once at the L5 dorsal ramus and the L4 medial branch. This would denervate the L5-S1 hypermobile facet joint. He has an artificial disk at the L5-S1 level as well as a fusion above. In the interim, he has had a knee replacement. Surgery went well and he is recovering. His knee is improving, but he says his other pains are worse. His pain overall is a 7/10. He complains of pain in the top of his right foot, but it has only been a month since surgery. I have told him to wait that out, whatever does not make it better. I do not think it is radiculopathy. I do not think it is a nerve injury. I do not think it is anything serious and so, he was given reassurance about that today. He has had chronic pain for years and multiple pain generators. One pain generator seems to resolve another, seems to take its place. We talked about this at some length today. I do not provide his medications, but in the postoperative period, he has been receiving oxycodone 10/325 and has been taking 2 tablets every 4-6 hours up to 12 tablets a day. This is marked increase from his previous dose. I should make note here that it was quite interesting today from a physiologic standpoint. He underwent medial branch nerve blocks on 06/27/2018 before he was on the higher doses of opioids. The procedures were performed without much difficulty and not much discomfort. When we repeated the procedures today per protocol, he exhibited marked hyperalgesia. I can only attribute this to opioid hyperalgesia and have no other answer for why there was such a significant difference in the exact procedure we performed 6 weeks ago. I explained this to him briefly in the procedure room. PHYSICAL EXAMINATION: GENERAL: He is anxious today, a little bit concerned and worried and focusing heavily on his pain generators. He described this condition is miserable. He seems a little pessimistic as I have seen him in the past. He was encouraged. VITAL SIGNS: Blood pressure 108/68, heart rate 72, respirations 16. Height 5 [place] [address] PAIN MANAGEMENT CONSULTATION Name: SIMÓN PARHAM Room #: REG CLI M.R.#: [id number] Admission: 08/15/18 ������������������ Attend Phys: Rio Sheehan MD Discharge: ������������������ Date of : 56 Report #: [id number] feet 7 inches, 208 pounds, BMI 40.7. MUSCULOSKELETAL: Tenderness across the low back and pain with back extension. Minimal pain radiating down the leg. There is some tenderness to the right foot. On a positive note, his right knee is healing nicely. IMPRESSION: 1. Chronic pain, multiple pain generators. 2. Post-laminectomy syndrome. 3. Status post right knee replacement with good initial recovery. 4. L5-S1 spondylosis. RECOMMENDATION: Repeat medial branch nerve block, L4 and dorsal ramus block L5 to isolate the L5-S1 facet joint from diagnostic purposes. Procedure well known to the patient, explained once again. He was taken to fluoroscopic suite for treatment where he was placed prone. Skin was prepped with ChloraPrep. Skin was anesthetized first on the left overlying the target for the L5 dorsal ramus and the L4 medial branch nerve. Again, it should be noted that he was exceptionally hyperalgesic. A 27-gauge needle and a small skin wheal, which is tolerated by nearly all was noted to be exquisitely painful for him today. This is different from when we had seen in the past. I then anesthetized a bit deeper, but because of the procedure was unable to completely anesthetize all the way down to the facet joint. This is usually an area that does not experience much discomfort during needle placement. [place] were advanced into position on the sacral ala and on the medial aspect of the transverse process of L5 at the superior articulating facet. After negative aspiration, I injected 0.5 mL of 0.5% bupivacaine at each location. I then repeated the procedure on the right, which was equally hypersensitive and hyperalgesic. He tolerated the procedure well. He was taken to recovery room where his pain score on the left was scored a 0 and on the right as a 2. He was given a log to keep track of his response, and I will consider radiofrequency ablation of these 2 small nerves to provide relief in the low back. I would prefer to do both sides at the same time, would be several placement of 2 needles one on each side and he could easily tolerate it, we could accomplish a single setting. We will seek preauthorization and go forward with treatment based upon insurance coverage. ��������������������������������������������� <ELECTRONICALLY SIGNED> ���������������������������������������� By: Rio Sheehan MD ��������������������������������������������� 08/27/18 1725 1807 2214 Rio Sheehan MD /juliana
== END | disposition home or self-care (01) ==
LOC: PAIN 06:45
DX: M47.817 Spondylosis without myelopathy or radiculopathy, lumbosacral region (principal); G89.29 Other chronic pain; M96.1 Postlaminectomy syndrome, not elsewhere classified; G47.30 Sleep apnea, unspecified; R07.9 Chest pain, unspecified; Z88.8 Allergy status to other drugs, medicaments and biological substances; Z91.040 Latex allergy status; Z96.651 Presence of right artificial knee joint; Z79.899 Other long term (current) drug therapy

== ENCOUNTER → 2018-09-16 | Outpatient (CLI) | payer BC ==
[~2018-09-16] VITALS: Ht 170.2 cm; Wt 98.5 kg
--- NOTE | ~2018-09-16 | HPC ---
[facility] [place] [address] PAIN MANAGEMENT CONSULTATION Name: SIMÓN PARHAM Room #: REG CLI Carlos.#: [id number] Admission: 09/16/18 ������������������ Attend Phys: Rio Sheehan MD Discharge: ������������������ Date of : 56 Report #: [id number] THIS REPORT FOR: //name// CC: Rio Trinidad MD DATE OF SERVICE: 09/16/2018 Followup visit for chronic pain, multiple pain generators. Post-laminectomy syndrome. Status post L5-S1 disk replacement, status post knee replacement and shoulder arthropathy. Management of intrathecal pump with refill. The patient returns to Pain Clinic today with his . He is in good spirits today. His mood vacillates some. He was somewhat depressed at his last visit. Today, he seems to be doing better. He is less anxious and almost jovial. He describes a surgery, reporting some success. The surgery was performed by Dr. Otto Shoemaker on his right shoulder. Recovery has gone fairly smoothly. Continues to have low back pain, which we reviewed. He had medial branch nerve blocks L4, bilateral and L5 dorsal ramus blocks, bilateral. The diagnostic injections were very helpful. He scored his pain with a marked reduction of about 90% for nearly four hours following the procedure. Would like to go forward with radiofrequency ablation. There would only be four nerves those surrounding the artificial disk where there is mobility. I think we can do this all in one setting. Procedure was explained in detail, risks and benefits. Questions were asked and answered. PHYSICAL EXAMINATION: Pleasant and upbeat today, the change from his last visit. His blood pressure 106/70, heart rate 74, respirations 16, BMI 34. Moves from sitting to standing position. He ambulates with mild antalgic features. Mild pain across the low back with flexion and extension, but this has improved with pain intensity as low as 3. Mild tenderness around the scar. IMPRESSION: 1. Chronic low back pain, post-laminectomy syndrome. Lumbar spondylitic pain involving L5-S1. 2. Chronic pain syndrome with multiple pain generators. 3. Status post right knee replacement. 4. Management of intrathecal infusion pump. PROCEDURE: Refill reprogram intrathecal pump. After informed consent, he was placed in the supine position. Skin prepped with [address] [address] PAIN MANAGEMENT CONSULTATION Name: SIMÓN PARHAM Room #: REG CLI Carlos.#: [id number] Admission: 09/16/18 ������������������ Attend Phys: Rio Sheehan MD Discharge: ������������������ Date of : 56 Report #: [id number] ChloraPrep. Skin anesthetized and a 22-gauge non-coring needle advanced in the pump. Old medication discarded by protocol. Pump was then refilled with hydromorphone 15 mg/mL and reprogramming session performed. No changes were made in his medication. Discharge dose will be 6.7 mg per day. Next refill is scheduled for 12/09/2018. I do not prescribe oral medications for the patient. Radiofrequency will be performed when we have preauthorization. ��������������������������������������������� ���������������������������������������� By: ��������������������������������������������� 1258 [id number] Rio Sheehna MD /nt
[2018-09-16 09:41] VITALS: BP 106/70
--- NOTE | 2018-09-16 09:56 | NUR ---
Pain Clinic Assessment: 1. History of Osteoarthritis: R KNEE R INDEX FINGER B/L SHOULDERS BACK History of Rheumatoid Arthritis: Not Applicable 2. Height: 5 ft. 7 in. 170.2 cm. Weight: 217.2 lb. oz. 98.521 kg. Patient's BMI: 34.0 3. Vital Signs: BP: 106/70 Pulse: 74 Resp: 16 Temp: 02 Sat: 96 ECG Mon: 4. Pain Intensity: 3 5. Fall Risk: Dizziness: N Needs help standing or walking: N Fallen in the last 3 months: N Fall risk comments: 6. Patient on Blood Thinner: None 7. History of Hypertension: N 8. Opioid Therapy greater than 6 weeks: Y Opiate Contract Signed: 9. Risk Assessment Tool Provided: DR MARIE 10. Functional Assessment Tool: 11. Recreational Drug Use: Never Drug Type: Tobacco Use: Never Smoker Tobacco Type: Amount or Packs/day: How Many Years: Alcohol Use: Yes Frequency: Quant:
== END | disposition home or self-care (01) ==
LOC: PAIN 06:49
DX: Z45.1 Encounter for adjustment and management of infusion pump (principal); G89.4 Chronic pain syndrome; M96.1 Postlaminectomy syndrome, not elsewhere classified; M47.897 Other spondylosis, lumbosacral region; G47.30 Sleep apnea, unspecified; Z96.651 Presence of right artificial knee joint; Z79.899 Other long term (current) drug therapy; Z98.890 Other specified postprocedural states; Z79.891 Long term (current) use of opiate analgesic; Z91.040 Latex allergy status; Z88.8 Allergy status to other drugs, medicaments and biological substances

== ENCOUNTER → 2018-10-21 | Outpatient (CLI) | payer BC ==
[~2018-10-21] VITALS: Ht 170.2 cm; Wt 98.4 kg
--- NOTE | ~2018-10-21 | HPC ---
[facility] [place] [address] PAIN MANAGEMENT CONSULTATION Name: SIMÓN PARHAM Room #: REG CLI M..#: [id number] Admission: 10/21/18 Attend Phys: Rio Sheehan MD Discharge: Date of : 56 Report #: [id number] THIS REPORT FOR: //name// CC: POOJA Trinidad DATE OF SERVICE: 10/21/2018 DIAGNOSIS: Chronic low back pain, post-laminectomy syndrome, lumbar spondylitic pain at L5-S1. The patient has a mobile L5-S1 segment in face of multiple fused levels above. He has received 2 diagnostic injections injecting the L4 medial branch and the L5 dorsal ramus on each side with small amounts of bupivacaine. This has been effective in reducing his pain for 90% for about 4 hours. He would like to go forward with radiofrequency ablation. I have discussed the procedure at some length with him, including potential risks, benefits, and challenges in identifying the nerve. He is anxious to proceed. PHYSICAL EXAMINATION: GENERAL: Today, he is pleasant and optimistic. VITAL SIGNS: Blood pressure is 119/75, heart rate 72, respirations 16. EXTREMITIES: He moves from sitting to standing position, ambulates with mild antalgic features. He has pain with forward flexion and extension of the lumbar spine. IMPRESSION: Lumbar spondylosis involving hypermobile L5-S1 segment. PROCEDURE: Bilateral L4 medial branch nerve and L5 dorsal ramus radiofrequency ablation. PROCEDURE: He was taken to the fluoroscopic suite, placed prone, skin prepped with ChloraPrep. We began on the right. Using biplanar fluoroscopic views, I anesthetized the skin and positioned a 20-gauge 10-mm active tip RFK needle into position on the medial border of the L5 transverse process at the articulation of the superior articular process. Multiple adjustments were required and I was unable to adequately obtain good stimulation. I did position the needle, however, at the appropriate landmarks and carefully adjusted the needle depth using lateral views to assure that the needle was not extending into the neuroforamen. I then positioned the L5 dorsal ramus needle nicely into the area of the sacral ala and testing on that needle achieved excellent sensory response at 0.4. Motor testing was then carefully performed, and there was no movement of the lower extremity musculature at 2 Hz up to 1.5. Probe was then removed. [address] [address] PAIN MANAGEMENT CONSULTATION Name: SIMÓN PARHAM JONA Room #: REG CLI Devyn#: [id number] Admission: 10/21/18 Attend Phys: Rio Sheehan MD Discharge: Date of : 56 Report #: [id number] Each needle injected with 1 mL of 1% lidocaine. Probes were replaced. We waited 90 seconds and performed a lesion at 80 degrees for 90 seconds. The slightly curved RFK needle was then rotated 180 degrees and repeated the lesion. A second ablation performed in order to try and capture the elusive medial branch. Before removing the needles, I injected each with 1 mL of 0.5% bupivacaine and 10 mg of triamcinolone. C-arm was then moved to the right. Once again, we found challenges in identifying the L4 medial branch with stimulation. Several passes using the challenging landmarks were attempted. I ultimately positioned the needle in what was felt to be in excellent position, in the medial border of the transverse process and the superior articulating process. The L5 dorsal ramus placement also went smoothly on the right in comparison to the L4 medial branch. I performed the rest of the testing identical to the description above. There were no complications. He tolerated the procedure well and was taken to recovery room. There was a good observation period of 30 minutes. There was no subjective or objective weakness in the lower extremity, and pain was reduced as would be expected with the local anesthetic effect. I am hopeful that we were in good proximity of the nerves. The challenges of performing the procedure on such an operative lumbosacral spine were discussed. We will follow up by phone in 1-2 weeks. No new medications were ordered today. By: [id number] Rio Sheehan MD /nt
[2018-10-21 13:32] VITALS: BP 119/75
--- NOTE | 2018-10-21 13:53 | NUR ---
Pain Clinic Assessment: 1. History of Osteoarthritis: R KNEE R INDEX FINGER B/L SHOULDERS BACK History of Rheumatoid Arthritis: Not Applicable 2. Height: 5 ft. 7 in. 170.2 cm. Weight: 217.0 lb. oz. 98.431 kg. Patient's BMI: 34.0 3. Vital Signs: BP: 119/75 Pulse: 72 Resp: 16 Temp: 02 Sat: 96 ECG Mon: 4. Pain Intensity: 3 5. Fall Risk: Dizziness: N Needs help standing or walking: N Fallen in the last 3 months: N Fall risk comments: 6. Patient on Blood Thinner: None 7. History of Hypertension: N 8. Opioid Therapy greater than 6 weeks: Y Opiate Contract Signed: 9. Risk Assessment Tool Provided: DR MARIE 10. Functional Assessment Tool: 11. Recreational Drug Use: Never Drug Type: Tobacco Use: Never Smoker Tobacco Type: Amount or Packs/day: How Many Years: Alcohol Use: Yes Frequency: Quant:
== END | disposition home or self-care (01) ==
LOC: PAIN 06:55
DX: M47.897 Other spondylosis, lumbosacral region (principal); G89.29 Other chronic pain; M96.1 Postlaminectomy syndrome, not elsewhere classified; Z88.8 Allergy status to other drugs, medicaments and biological substances; Z79.899 Other long term (current) drug therapy

== ENCOUNTER → 2018-11-07 | Outpatient (CLI) | payer BC ==
[~2018-11-07] VITALS: Ht 170.2 cm; Wt 94.7 kg
--- NOTE | ~2018-11-07 | HPC ---
[facility] [place] [address] PAIN MANAGEMENT CONSULTATION Name: SIMÓN PARHAM Room #: REG CLI M..#: [id number] Admission: 11/07/18 ������������������ Attend Phys: Rio Sheehan MD Discharge: ������������������ Date of : 56 Report #: [id number] THIS REPORT FOR: //name// CC: Rio Trinidad MD DATE OF SERVICE: 11/07/2018 Followup visit for chronic low back pain, post-laminectomy syndrome, lumbar spondylosis, status post radiofrequency ablation at L5-S1 segment. The patient returns to pain clinic today, now 2 weeks following his RFL treatment. He is 80-90% better. As is often the case with the patient, he has additional complaints of pain to discuss today. He has pain bilaterally over the trochanter. He has previously been diagnosed with trochanteric bursitis. Although, he has trochanteric bursitis, his overall pain load is down based upon his improvement following the radiofrequency, he would like to continue tapering his intrathecal pump. I have agreed to lower it by 10%. PHYSICAL EXAMINATION: He is a pleasant gentleman. He is wearing dark glasses when I entered the room. He moves independently from sitting to standing position. His gait is mildly antalgic. Minimal pain across the low back at this point in time with minimal tenderness. Bilateral tenderness of the greater trochanter extending down the length of the femur about 4-6 inches on each side. No pain with internal or external rotation of the hip. Straight leg raising is negative for radiculopathy. IMPRESSION: 1. Bilateral trochanteric bursitis. 2. Chronic pain with multiple pain generators. 3. Management of intrathecal infusion pump with reprogramming session. PROCEDURE: Reprogramming session. The program was used to adjust his intrathecal pump down to 10%. He is on monotherapy with morphine at 6 mg per day. We will continue to reduce his dose monthly. I would like to go no faster than that and we will drop him by 10% each time. Within 6 months, he should be down to half his current dose. Followup visit is planned in the pain clinic in [address] [address] PAIN MANAGEMENT CONSULTATION Name: SIMÓN PARHAM Room #: REG CLI Carlos.#: [id number] Admission: 11/07/18 ������������������ Attend Phys: Rio Sheehan MD Discharge: ������������������ Date of : 56 Report #: [id number] I will consider trochanteric bursa injections if his pain is not improved. We discussed simple measures including itnl-ard-rffnaeb analgesics, massage, ice and exercise. ��������������������������������������������� ���������������������������������������� By: ��������������������������������������������� 1726 0158 Rio Sheehan MD /nt
[2018-11-07 14:31] VITALS: BP 133/80
--- NOTE | 2018-11-07 14:36 | NUR ---
Pain Clinic Assessment: 1. History of Osteoarthritis: R KNEE R INDEX FINGER B/L SHOULDERS BACK History of Rheumatoid Arthritis: Not Applicable 2. Height: 5 ft. 7 in. 170.2 cm. Weight: 208.8 lb. oz. 94.711 kg. Patient's BMI: 32.7 3. Vital Signs: BP: 133/80 Pulse: 75 Resp: 16 Temp: 02 Sat: 99 ECG Mon: 4. Pain Intensity: 1 5. Fall Risk: Dizziness: N Needs help standing or walking: N Fallen in the last 3 months: N Fall risk comments: 6. Patient on Blood Thinner: None 7. History of Hypertension: N 8. Opioid Therapy greater than 6 weeks: Y Opiate Contract Signed: 9. Risk Assessment Tool Provided: DR MARIE 10. Functional Assessment Tool: 11. Recreational Drug Use: Never Drug Type: Tobacco Use: Never Smoker Tobacco Type: Amount or Packs/day: How Many Years: Alcohol Use: Yes Frequency: Special Occasions Quant: 3
== END | disposition home or self-care (01) ==
LOC: PAIN 07:02
DX: Z45.1 Encounter for adjustment and management of infusion pump (principal); G89.29 Other chronic pain; M70.62 Trochanteric bursitis, left hip; M70.61 Trochanteric bursitis, right hip; M54.5 Low back pain; M96.1 Postlaminectomy syndrome, not elsewhere classified; M47.896 Other spondylosis, lumbar region; Z98.890 Other specified postprocedural states; Z91.040 Latex allergy status; Z79.899 Other long term (current) drug therapy; Z88.8 Allergy status to other drugs, medicaments and biological substances

== ENCOUNTER 2018-11-10 02:48 | Emergency (ER) | payer BC ==
[~2018-11-10] VITALS: Ht 170.2 cm; Wt 90.7 kg
[2018-11-10 03:17] LABS: ABSOLUTE NEUTROPHILS 3.2 thou/uL (1.4-8.2); ANION GAP 10 mmol/L (7-16); BASOPHILS 0.7 % (0.0-2.0); BUN 19 mg/dL (7-18); CALCIUM 9.2 mg/dL (8.5-10.1); CHLORIDE 104 mmol/L (98-107); CO2 29 mmol/L (21-32); CREATININE 0.9 mg/dL (0.7-1.3); EOSINOPHILS 4.3 % (0.0-3.0); GLUCOSE 109 mg/dL (74-106); HEMATOCRIT 43.7 % (42.0-52.0); HEMOGLOBIN 14.2 gm/dL (14.0-18.0); LYMPHOCYTES 33.2 % (24.0-44.0); MCH 27.4 pg (26.0-34.0); MCHC 32.4 g/dL (28.0-37.0); MCV 84.5 fL (80.0-100.0); MONOCYTES 10.1 % (1.0-8.0); PLATELET COUNT 184 thou/uL (150-400); POLYS 51.7 % (36.0-66.0); POTASSIUM 4.2 mmol/L (3.5-5.1); RBC 5.17 mil/uL (4.50-6.00); RDW 14.3 % (10.5-14.5); SODIUM 143 mmol/L (136-145); WBC 6.2 thou/uL (4.0-11.0)
[2018-11-10 03:25] LABS: TROPONIN-I <0.06 ng/mL (<0.06)
[2018-11-10 06:39] VITALS: BP 125/62
--- NOTE | 2018-11-10 14:30 | EKG ---
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 : 1960 Requested By: Dio Calderon Order Number: [id number] MD: Tigre Walsh Measurements Intervals [place] Rate: 60 P: 34 TN: 212 QRS: 30 QRSD: 88 T: 86 QT: 417 QTc: 417 Interpretive Statements Sinus rhythm Prolonged TN interval Probable anteroseptal infarct, old Compared to ECG 10/29/2017 12:56:11 First degree AV block now present Septal Q waves are now present Electronically Signed On 11-10-2018 14:30:28 CDT by Tigre Walsh [email or web address] ��������������������������������������������� <ELECTRONICALLY SIGNED> ���������������������������������������� By: Tigre Walsh MD, [facility] ��������������������������������������������� 11/10/18 1430 0233 0233 Tigre Walsh MD, [facility] /EPI
--- NOTE | 2018-11-10 14:32 | EKG ---
[address] [address] ELECTROCARDIOGRAM REPORT Name: SIMÓN PARHAM Room #: DEP ER Jane#: [id number] ������������������ Admission: 11/10/18 ������������������ Attend Phys: Discharge: 11/10/18 ������������������ Date of : 56 Report #: [id number] ����������������������������������������������������������������� [id number] THIS REPORT FOR: //name// 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1960 Requested By: Dio Calderon Order Number: [id number] MD: Tigre Walsh Measurements Intervals [place] Rate: 55 P: 38 AR: 155 QRS: -4 QRSD: 104 T: 12 QT: 413 QTc: 395 Interpretive Statements Sinus bradycardia Otherwise normal tracing Compared to ECG 10/29/2017 12:56:11 No significant change was found Electronically Signed On 11-10-2018 14:31:58 CDT by Tigre Walsh [email or web address] ��������������������������������������������� <ELECTRONICALLY SIGNED> ���������������������������������������� By: Tigre Walsh MD, [facility] ��������������������������������������������� 11/10/18 1431 0316 031 Tigre Walsh MD, [facility] /EPI
--- NOTE | 2018-11-10 14:32 | EKG ---
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 : 1960 Requested By: Dio Calderon Order Number: [id number] MD: Tigre Walsh Measurements Intervals [place] Rate: 56 P: 32 SD: 157 QRS: -2 QRSD: 102 T: 21 QT: 397 QTc: 384 Interpretive Statements Sinus bradycardia Otherwise normal tracing Compared to ECG 10/29/2017 12:56:11 SD interval shortened Electronically Signed On 11-10-2018 14:31:41 CDT by Tigre Walsh [email or web address] ��������������������������������������������� <ELECTRONICALLY SIGNED> ���������������������������������������� By: Tigre Walsh MD, [facility] ��������������������������������������������� 11/10/18 1431 0249 0249 Tigre Walsh MD, FACC /EPI
== END 2018-11-10 06:43 | disposition home or self-care (01) ==
LOC: ER 02:48
PROVIDERS: Emergency Medicine
DX: R07.9 Chest pain, unspecified (principal); I10 Essential (primary) hypertension; F32.9 Major depressive disorder, single episode, unspecified; Z90.49 Acquired absence of other specified parts of digestive tract; Z91.040 Latex allergy status; Z91.013 Allergy to seafood; Z88.1 Allergy status to other antibiotic agents; Z88.8 Allergy status to other drugs, medicaments and biological substances

== ENCOUNTER → 2018-11-13 | Outpatient (CLI) | payer BC ==
[~2018-11-13] VITALS: Ht 170.2 cm; Wt 90.7 kg
[~2018-11-13] MED LIST changes: +ASPIRIN325 PO
[2018-11-13 07:27] LABS: HEMOGLOBIN 14.1 gm/dL (14.0-18.0); MCH 27.8 pg (26.0-34.0); MCHC 32.8 g/dL (28.0-37.0); MCV 84.6 fL (80.0-100.0); RBC 5.08 mil/uL (4.50-6.00); RDW 14.5 % (10.5-14.5); WBC 6.6 thou/uL (4.0-11.0)
[2018-11-13 07:29] LABS: CALCIUM 9.3 mg/dL (8.5-10.1); CREATININE 0.9 mg/dL (0.7-1.3); POTASSIUM 4.4 mmol/L (3.5-5.1)
--- NOTE | 2018-11-13 08:14 | EKG ---
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
--- NOTE | 2018-11-13 10:27 | CATHLAB ---
[facility] [address] [place] [address] INVASIVE PROCEDURE REPORT Name: SIMÓN PARHAM Room #: REG [facility]#: [id number] Admission: 11/13/18 Attend Phys: Ian Martinez MD Discharge: Date of : 56 Report #: [id number] THIS REPORT FOR: //name// APPROVED REPORT Study performed: 11/13/2018 08:24:11 Patient Details Patient Status: Out-Patient Room #: The patient is a 58 year-old male Event Personnel Ian Martinez Children'S Service Supervisor, Mukund Guerrero RN RN, Kwesi Dixon Brown, Roberta Monitor Procedures Performed Left Heart Cath w/LT VGram [id number] LHCLV 14511 Initial Mod Sed Same Phys/QHP Gr5y [id number] 49617 Mod Sed Same Phys/QHP Ea [id number] Hemostasis with Hemoband Art Access - R radial artery Indication Positive stress test, Chest pain Risk Factors Hypercholesterolemia, Hypertension Procedure Narrative The Right Wrist^ was infiltrated with 1% Lidocaine subcutaneous anesthesia. A TRANSRADIAL SLENDER 6F GLIDESHEATH KIT #[id number] sheath was inserted into the Right Radial Artery^. Coronary angiography was performed using coronary diagnostic catheters. The right coronary system was accessed and visualized with a JR4 catheter. The left coronary system was accessed and visualized with a JL3.5 catheter. The left ventricle was accessed and visualized with a 5FR PIG 145 ANGLED #[id number] catheter. Left ventriculogram was performed in 30 degree projection. Closure device was deployed with a Fr VASC BAND R 24CM #[id number]. Intraoperative Conscious Sedation Sedation start time: 813 Case end Time: 848 Fentanyl 100 mcg Versed 4 mg Fluoro Time: 5.80 minutes Dose: DAP 6300.00 cGycm2 1527 mGy [facility] [place] [address] INVASIVE PROCEDURE REPORT Name: DIONESIMÓN MINDEN Room #: REG [facility]#: [id number] Admission: 11/13/18 Attend Phys: Ian Martinez MD Discharge: Date of : 56 Report #: [id number] Contrast Type and Amount: Omnipaque 95 ml Coronary Angiography The patient's coronary anatomy is right dominant. Diagnostic Cath Left Main This is a large caliber vessel, patent with no flow-limiting lesions. LAD This is a moderate size caliber vessel, traversing the anterior wall and wrapping around the apex. There is mild disease in the proximal segment, 20-30%. Diagonal 1 This is a moderate size caliber vessel with a 60-70% stenosis in the proximal segment. Circumflex Supplies one moderate size obtuse marginal artery. OM1 There is moderate disease in the proximal segment, 50%. Right Coronary This is a dominant vessel with mild disease in the mid segment, 30%. R PDA This is a patent vessel, with no flow-limiting lesions. RPLV This is a patent vessel, with no flow-limiting lesions. Ramus This is a moderate size caliber vessel, with mild disease at the ostium, 30%. Left Ventriculography The left ventricle is normal in size with normal contractility. The left ventricular ejection fraction is estimated to be 55-60%. Hemodynamics The aortic pressure is 114/71 mmHg with a mean of 89 mmHg. The left ventricular pressure is 122/1 mmHg with a mean of mmHg. The left ventricular end diastolic pressure is 12 mmHg. There was no gradient across the aortic valve upon pullback. Pullback from the left ventricle to the aorta revealed no gradient across the aortic valve. Conclusion 1. There is mild disease in the LAD and RCA. 2. There is a borderline stenosis in the first diagonal artery, recommend medical therapy. 3. There is moderate stenosis in the first obtuse marginal artery. [facility] [address] [place] [address] INVASIVE PROCEDURE REPORT Name: SIMÓN PARHAM Room #: REG CL [facility]#: [id number] Admission: 11/13/18 Attend Phys: Ian Martinez MD Discharge: Date of : 56 Report #: [id number] 4. There is normal LV systolic function. 5. Recommend aggressive risk factor management. <ELECTRONICALLY SIGNED> By: Ian Martinez MD 11/13/18 1027 26 Ian Martinez MD /INF
== END | disposition home or self-care (01) ==
LOC: CATH 06:48
PROVIDERS: Internal Medicine Cardiovascular Disease
DX: R07.9 Chest pain, unspecified (principal); I25.10 Atherosclerotic heart disease of native coronary artery without angina pectoris; I10 Essential (primary) hypertension; E78.00 Pure hypercholesterolemia, unspecified; E78.5 Hyperlipidemia, unspecified; K21.9 Gastro-esophageal reflux disease without esophagitis; F32.9 Major depressive disorder, single episode, unspecified; Z98.890 Other specified postprocedural states; Z79.899 Other long term (current) drug therapy; Z91.040 Latex allergy status; Z88.8 Allergy status to other drugs, medicaments and biological substances

== ENCOUNTER → 2018-12-12 | Outpatient (CLI) | payer BC ==
[~2018-12-12] VITALS: Ht 170.2 cm; Wt 92.5 kg
[~2018-12-12] MED LIST changes: +XIIDRA1 EACH OPHTHALMIC
[2018-12-12 09:43] VITALS: BP 157/86
--- NOTE | 2018-12-12 09:55 | NUR ---
Pain Clinic Assessment: 1. History of Osteoarthritis: R KNEE R INDEX FINGER B/L SHOULDERS BACK History of Rheumatoid Arthritis: Not Applicable 2. Height: 5 ft. 7 in. 170.2 cm. Weight: 204.0 lb. oz. 92.534 kg. Patient's BMI: 31.9 3. Vital Signs: BP: 157/86 Pulse: 77 Resp: 14 Temp: 02 Sat: 98 ECG Mon: 4. Pain Intensity: 3 BACK 7 KNEES 5. Fall Risk: Dizziness: N Needs help standing or walking: N Fallen in the last 3 months: N Fall risk comments: 6. Patient on Blood Thinner: None 7. History of Hypertension: N 8. Opioid Therapy greater than 6 weeks: Y Opiate Contract Signed: 9. Risk Assessment Tool Provided: DR MARIE 10. Functional Assessment Tool: 11. Recreational Drug Use: Never Drug Type: Tobacco Use: Never Smoker Tobacco Type: Amount or Packs/day: How Many Years: Alcohol Use: Yes Frequency: Quant:
--- NOTE | 2019-01-09 12:53 | HPC ---
[facility] [place] [address] PAIN MANAGEMENT CONSULTATION Name: SIMÓN PARHAM Room #: REG CLI [facility].#: [id number] Admission: 12/12/18 Attend Phys: Rio Sheehan MD Discharge: Date of : 56 Report #: [id number] THIS REPORT FOR: //name// CC: Rio Trinidad MD DATE OF SERVICE: 12/12/2018 Followup visit and readjustment of intrathecal infusion pump. The patient returns to pain clinic today for refill and reprogramming of his intrathecal infusion pump. He is working hard at tapering down off of his opioids, both intrathecal and systemic. He has done a good job of both. He has not taken an oral hydrocodone in some time. He would like to reduce his intrathecal hydromorphone by 10% today. Overall, he is doing much better. His affect is pleasant and outgoing, does not seem to be depressed at all. PQRS REVIEW: 1. Diffuse history of osteoarthritis involving knee, shoulders, hands and spondylosis. 2. BMI of 31.9. 3. Vital signs: Blood pressure 157/86, heart rate 77, respirations 14. 4. Pain intensity is 3 in his back, 7 in his knees. 5. He is not a fall risk. 6. No blood thinning medications. 7. History of hypertension. 8. He is on an opioid agreement. We have reviewed the terms of that agreement. 9. Dr. Rasheed Vivi follows him, provides oral pain medications for him, we no longer do that. We manage only his intrathecal pump. 10. Functional assessment score is not taken today. 11. He denies use of tobacco, drinks alcohol in the social setting. IMPRESSION: 1. Chronic pain with multiple pain generators. Post-laminectomy syndrome with radiculopathy, bilateral, stable and improving. 2. Diffuse osteoarthritis and arthropathy. 3. Depression, stable. He seems to be in remission. PROCEDURE: Refill, reprogramming of intrathecal infusion pump. Skin was prepped with ChloraPrep. A 22-gauge non-coring needle advanced in the pump. Old medication removed and discarded per protocol. The pump was then refilled with hydromorphone 15 mg per mL and a reprogramming session reduced the dose by 10% to 5.4 mg per day. [address] [address] PAIN MANAGEMENT CONSULTATION Name: SIMÓN PARHAM Room #: REG CLI [facility].#: [id number] Admission: 12/12/18 Attend Phys: Rio Sheehan MD Discharge: Date of : 56 Report #: [id number] His next refill is scheduled for about 3 months. No medications were ordered. <ELECTRONICALLY SIGNED> By: Rio Sheehan MD 01/09/19 1253 1634 0522 Rio Sheehan MD /nt
== END | disposition home or self-care (01) ==
LOC: PAIN 06:53
DX: Z45.1 Encounter for adjustment and management of infusion pump (principal); G89.29 Other chronic pain; M54.16 Radiculopathy, lumbar region; M96.1 Postlaminectomy syndrome, not elsewhere classified; I10 Essential (primary) hypertension; M19.90 Unspecified osteoarthritis, unspecified site; F32.9 Major depressive disorder, single episode, unspecified; Z79.891 Long term (current) use of opiate analgesic; Z98.890 Other specified postprocedural states; Z91.040 Latex allergy status; Z88.8 Allergy status to other drugs, medicaments and biological substances; Z79.899 Other long term (current) drug therapy; Z79.82 Long term (current) use of aspirin

== ENCOUNTER → 2019-01-09 | Outpatient (CLI) | payer BC ==
[~2019-01-09] VITALS: Ht 170.2 cm; Wt 98.9 kg
[2019-01-09 09:03] VITALS: BP 121/72
--- NOTE | 2019-01-09 12:30 | NUR ---
Pain Clinic Assessment: 1. History of Osteoarthritis: R KNEE R INDEX FINGER B/L SHOULDERS BACK History of Rheumatoid Arthritis: Not Applicable 2. Height: 5 ft. 7 in. 170.2 cm. Weight: 218.0 lb. oz. 98.884 kg. Patient's BMI: 34.1 3. Vital Signs: BP: 121/72 Pulse: 70 Resp: 16 Temp: 02 Sat: 97 ECG Mon: 4. Pain Intensity: 6 5. Fall Risk: Dizziness: N Needs help standing or walking: N Fallen in the last 3 months: N Fall risk comments: 6. Patient on Blood Thinner: None 7. History of Hypertension: N 8. Opioid Therapy greater than 6 weeks: Y Opiate Contract Signed: 9. Risk Assessment Tool Provided: Opioid Risk Tool 10. Functional Assessment Tool: No falls, no assist nec. 11. Recreational Drug Use: Never Drug Type: Tobacco Use: Never Smoker Tobacco Type: Amount or Packs/day: How Many Years: Alcohol Use: Yes Frequency: Special Occasions Quant:
== END | disposition home or self-care (01) ==
LOC: PAIN 01-08 12:21
DX: Z45.1 Encounter for adjustment and management of infusion pump (principal); G89.29 Other chronic pain; M19.90 Unspecified osteoarthritis, unspecified site; M96.1 Postlaminectomy syndrome, not elsewhere classified; M54.10 Radiculopathy, site unspecified; Z79.899 Other long term (current) drug therapy; Z79.82 Long term (current) use of aspirin; Z91.040 Latex allergy status

== ENCOUNTER → 2019-02-03 | Outpatient (CLI) | payer BC ==
[~2019-02-03] VITALS: Ht 167.6 cm; Wt 99.9 kg
[~2019-02-03] MED LIST changes: +REPATHA SY140 MG/1 M SUBQ
--- NOTE | ~2019-02-03 | HPC ---
[facility] [address] [place] [address] PAIN MANAGEMENT CONSULTATION Name: SIMÓN PARHAM Room #: REG CLI [facility].#: [id number] Admission: 02/03/19 Attend Phys: Rio Sheehan MD Discharge: Date of : 56 Report #: [id number] THIS REPORT FOR: //name// CC: Rio Trinidad DATE OF SERVICE: 02/03/2019 Followup visit for chronic pain, osteoarthritis, post-laminectomy syndrome, management of intrathecal infusion pump, trochanteric bursitis. The patient is here today for further decrease of his intrathecal pump. We have been gradually reducing the dose at his request and he has done well. His current infusion is at 4.8 mg per day of hydromorphone. We will reduce it by 10% to 4.3. The pump is providing pain from multiple pain generators including osteoarthritis and chronic back pain. It works well to provide some control of pain, which is scored at 6/10 today on the intensity scale. Complains today of pain bilaterally overlying the trochanter. It is locally tender. It is worse after walking and exercise. He has responded favorably in the past to trochanteric bursa injections. We discussed at his previous visit on 01/09/2019. He is also hopeful that we can provide injections today. PQRS REVIEW: 1. Diffuse osteoarthritis knee, index finger, bilateral shoulders and spondylosis. 2. BMI 35.6. He understands the importance of maintaining weight and health maintenance for control of pain. 3. Vital signs: Blood pressure 135/76, heart rate 73. 4. Pain intensity today is 5-6/10. 5. No fall risk. 6. No blood thinners. 7. No history of hypertension or treatment. 8. He has been on opioid agreement in the past. I do not provide medications at this time. 9. He has completed an opioid risk tool score with a score of 1. 10. Functional assessment number is improved at 21. 11. Denies use of tobacco, drinks alcohol socially 3-4 times a week. He denies use of marijuana or any other THC containing products. PHYSICAL EXAMINATION: GENERAL: Pleasant, alert and oriented. No signs of depression or anxiety. VITAL SIGNS: As noted. MUSCULOSKELETAL: Moves easily from sitting to standing position with mildly antalgic gait. Bilateral tenderness overlying the trochanter. Pain with internal and external rotation of the hip. [address] [address] PAIN MANAGEMENT CONSULTATION Name: SIMÓN PARHAM Room #: REG CLI [facility]#: [id number] Admission: 02/03/19 Attend Phys: Rio Sheehan MD Discharge: Date of : 56 Report #: [id number] IMPRESSION: 1. Chronic intractable pain with multiple pain generators. Prior back surgery x 2. 2. Diffuse osteoarthritis. 3. Trochanteric bursitis. 4. History of depression, in remission. 5. Intrathecal infusion pump implanted in 2006 here today for reduction hydromorphone. PROCEDURES: 1. Reprogramming. The programming device was used to reduce his dose from 4.8 to 4.3. Programming information was provided to the patient and a copy kept on his chart. 2. Bilateral trochanteric bursa injections. After informed consent, he was placed first in the right lateral decubitus position. Skin was prepped over the left greater trochanter. A 25-gauge needle was used to infiltrate a total of 4 mL of 0.5% bupivacaine mixed with 30 mg of triamcinolone. The needle was removed. He was then turned to the left side and the right trochanteric bursa was injected in the same fashion with the same medication combination. He tolerated the procedure well and there were no complications. He was discharged in good condition. A followup visit planned as needed. His next pump refill is scheduled for 04/11/2019. By: 0950 1849 Rio Sheehan MD /nt
[2019-02-03 09:00] VITALS: BP 135/76
--- NOTE | 2019-02-03 09:15 | NUR ---
Pain Clinic Assessment: 1. History of Osteoarthritis: R KNEE R INDEX FINGER B/L SHOULDERS BACK History of Rheumatoid Arthritis: Not Applicable 2. Height: 5 ft. 6 in. 167.6 cm. Weight: 220.2 lb. oz. 99.882 kg. Patient's BMI: 35.6 3. Vital Signs: BP: 135/76 Pulse: 73 Resp: 18 Temp: 02 Sat: ECG Mon: 4. Pain Intensity: 5 5. Fall Risk: Dizziness: N Needs help standing or walking: N Fallen in the last 3 months: N Fall risk comments: 6. Patient on Blood Thinner: None 7. History of Hypertension: N 8. Opioid Therapy greater than 6 weeks: Y Opiate Contract Signed: 9. Risk Assessment Tool Provided: LOW RISK 02/28 10. Functional Assessment Tool: 11. Recreational Drug Use: Never Drug Type: Tobacco Use: Never Smoker Tobacco Type: Amount or Packs/day: How Many Years: Alcohol Use: Yes Frequency: Special Occasions Quant: 4
== END | disposition home or self-care (01) ==
LOC: PAIN 06:44
DX: M70.62 Trochanteric bursitis, left hip (principal); M70.61 Trochanteric bursitis, right hip; M96.1 Postlaminectomy syndrome, not elsewhere classified; M19.90 Unspecified osteoarthritis, unspecified site; G89.29 Other chronic pain; Z88.8 Allergy status to other drugs, medicaments and biological substances; Z91.040 Latex allergy status; Z79.899 Other long term (current) drug therapy

== ENCOUNTER → 2019-04-03 | Outpatient (CLI) | payer BC ==
[~2019-04-03] VITALS: Ht 170.2 cm; Wt 99.7 kg
[~2019-04-03] MED LIST changes: +BELLADONNA-OPI1 EACH RECTAL; +NEURONTIN 300M300 M2 PO; +NEURONTIN300 MG PO; +SUNOSI75 MG PO
--- NOTE | ~2019-04-03 | HPC ---
[facility] [place] [address] [address] [address] PAIN MANAGEMENT CONSULTATION Name: SIMÓN PARHAM Room #: REG CLI [facility].R.#: [id number] Admission: 04/03/19 Attend Phys: Rio Sheehan MD Discharge: Date of : 56 Report #: [id number] THIS REPORT FOR: cc: Rasheed Trinidad MD, Steven E. MD Morgan, Richard L. MD ~ THIS REPORT FOR: //name// CC: Rio Trinidad MD DATE OF SERVICE: 04/03/2019 REASON FOR VISIT: Followup visit for refill and reprogramming and reduction of intrathecal medication. SUBJECTIVE: The patient returns to pain clinic and is doing well. He is pleased to see that he is tolerating his reductions in pain medication as he had hoped. It is time for refill. He also has a monotherapy hydromorphone intrathecal infusion pump and we will reduce it further today. MEDICATIONS: Pantoprazole, AndroGel, celecoxib, Valium, oxycodone, clobetasol, cyclosporine, polyethylene glycol, acyclovir and Xiidra eye drops. PQRS is unchanged from 02/03/2019. PHYSICAL EXAMINATION: He looks good today. He is bright, alert, has got a new henriquez! Moves independently and easily from sitting to standing position, walks with slightly antalgic gait. He continues to have tenderness bilaterally over the hips. There is pain of the hip on the left with internal and external rotation. He has some tenderness across the scar of his low back. IMPRESSION: 1. Chronic intractable pain with multiple pain generators. 2. Post-laminectomy syndrome. 3. Diffuse osteoarthritis. 4. Trochanteric bursitis, worse on the left. 5. History of depression, in remission. 6. Management of intrathecal infusion pump with refill and reprogramming. We will reduce him today again by 5-10%. PROCEDURE: Skin was prepped with ChloraPrep. 22-gauge non-coring needle advanced in the pump. Old medication removed and discarded per protocol. The pump was then refilled with 39.5 mL of hydromorphone 15 mg per mL and reprogrammed for 4.0 mg of hydromorphone a day at 7.2% decrease. Reprogramming [address] [address] PAIN MANAGEMENT CONSULTATION Name: SIMÓN PARHAM JONA Room #: REG CLI [facility].#: [id number] Admission: 04/03/19 Attend Phys: Rio Sheehan MD Discharge: Date of : 56 Report #: [id number] session results in a new refill date of 08/21/2019. No medications were necessary today. Dr. Rasheed Trinidad provides for all of his medications. Programming information was provided to the patient at discharge and we plan to see him back in the pain clinic sometime in July. By: 09 0003 Rio Sheehan MD /nt
[2019-04-03 10:59] VITALS: BP 106/72
--- NOTE | 2019-04-03 11:22 | NUR ---
Pain Clinic Assessment: 1. History of Osteoarthritis: R KNEE R INDEX FINGER B/L SHOULDERS BACK History of Rheumatoid Arthritis: Not Applicable 2. Height: 5 ft. 7 in. 170.2 cm. Weight: 219.8 lb. oz. 99.701 kg. Patient's BMI: 34.4 3. Vital Signs: BP: 106/72 Pulse: 78 Resp: 16 Temp: 02 Sat: 97 ECG Mon: 4. Pain Intensity: 3 5. Fall Risk: Dizziness: N Needs help standing or walking: N Fallen in the last 3 months: N Fall risk comments: 6. Patient on Blood Thinner: None 7. History of Hypertension: N 8. Opioid Therapy greater than 6 weeks: Y Opiate Contract Signed: 9. Risk Assessment Tool Provided: LOW RISK 02/28 10. Functional Assessment Tool: 11. Recreational Drug Use: Never Drug Type: Tobacco Use: Never Smoker Tobacco Type: Amount or Packs/day: How Many Years: Alcohol Use: Yes Frequency: Special Occasions Quant: 1-2
== END | disposition home or self-care (01) ==
LOC: PAIN 06:56
DX: Z45.1 Encounter for adjustment and management of infusion pump (principal); G89.29 Other chronic pain; M96.1 Postlaminectomy syndrome, not elsewhere classified; M19.90 Unspecified osteoarthritis, unspecified site; M70.62 Trochanteric bursitis, left hip; G47.30 Sleep apnea, unspecified; F32.4 Major depressive disorder, single episode, in partial remission; Z98.890 Other specified postprocedural states; Z79.899 Other long term (current) drug therapy; Z79.891 Long term (current) use of opiate analgesic; Z91.040 Latex allergy status; Z88.8 Allergy status to other drugs, medicaments and biological substances

== ENCOUNTER → 2019-04-08 | Outpatient (CLI) | payer BC ==
[~2019-04-08] VITALS: Ht 170.2 cm; Wt 99.3 kg
[2019-04-08 08:34] VITALS: BP 130/77
--- NOTE | 2019-04-08 08:49 | NUR ---
Pain Clinic Assessment: 1. History of Osteoarthritis: R KNEE R INDEX FINGER B/L SHOULDERS BACK History of Rheumatoid Arthritis: Not Applicable 2. Height: 5 ft. 7 in. 170.2 cm. Weight: 219.0 lb. oz. 99.338 kg. Patient's BMI: 34.3 3. Vital Signs: BP: 130/77 Pulse: 68 Resp: 16 Temp: 02 Sat: 100 ECG Mon: 4. Pain Intensity: 6 5. Fall Risk: Dizziness: N Needs help standing or walking: N Fallen in the last 3 months: N Fall risk comments: 6. Patient on Blood Thinner: None 7. History of Hypertension: N 8. Opioid Therapy greater than 6 weeks: Y Opiate Contract Signed: 9. Risk Assessment Tool Provided: LOW RISK 02/28 10. Functional Assessment Tool: 11. Recreational Drug Use: Never Drug Type: Tobacco Use: Never Smoker Tobacco Type: Amount or Packs/day: How Many Years: Alcohol Use: Yes Frequency: Quant:
--- NOTE | 2019-04-09 08:13 | HPC ---
[facility] [address] [address] PAIN MANAGEMENT CONSULTATION Name: SIMÓN PARHAM Room #: REG CLI M.R.#: [id number] Admission: 04/08/19 Attend Phys: Joceline Betancur Discharge: Date of : 56 Report #: [id number] THIS REPORT FOR: cc: Rasheed Trinidad MD,Rasheed Betancur,Joceline BIGGS ~ THIS REPORT FOR: //name// CC: Joceline Trinidad DATE OF SERVICE: 04/08/2019 CHIEF COMPLAINT: Chronic intractable back pain with multiple pain generators. HISTORY OF PRESENT ILLNESS: This is a 58-year-old gentleman, who returns to the pain clinic today for an increase in his intrathecal pump. He was here last week and had his pump refilled and reduction in his intrathecal pump by 7.4%. He has been slowly decreasing his daily dose for the last few months. He reports that this last decrease he has not been able to adjust very well, having sharp, crushing pain when he is up for more than 5 minutes at a time in his lower back and hips. He is requesting that he returned to the rate he was at his last visit or possibly a 10% increase. The patient is reporting a pain score today is 6/10. He also has been reporting that he has increased his gabapentin currently, now taking 3 times a day for his leg and neuropathic pain. He finds this has been beneficial and would like a prescription of that medicine as well. ALLERGIES: SHRIMP, LATEX, VANCOMYCIN, REMICADE, HUMIRA, COMPAZINE, SERTRALINE, CYCLOBENZAPRINE. MEDICATIONS: B and O suppositories p.r.n., Sunosi, gabapentin, Repatha, Xiidra, acyclovir, MiraLax, Restasis, Clobex, Valium, Percocet p.r.n., Celebrex, testosterone, and Protonix. PQRS: 1. He has diffuse osteoarthritis. 2. Height is 5 feet 7 inches, weight is 219, and BMI is 34. 3. Vital signs 130/77, pulse is 68, respirations 16, and oxygen sat is 100. 4. Pain score 6/10. 5. Denies dizziness, does not need help walking or standing, has not fallen in the last 3 months. 6. The patient is not on any blood thinners or medicine for hypertension. Opioid therapy is greater than 6 weeks; therefore, an opioid signed contract is on the chart. Risk assessment tool is low. Functional [place] [address] PAIN MANAGEMENT CONSULTATION Name: SIMÓN PARHAM Room #: REG CLI [facility]#: [id number] Admission: 04/08/19 Attend Phys: Joceline Betancur Discharge: Date of : 56 Report #: [id number] 7. Recreational drug use, he denies, not a smoker and occasionally drinks alcohol. PHYSICAL EXAMINATION: GENERAL: He is alert and orientated 58-year-old gentleman who appears his stated age, placing his current pain score at of 6/10 today. HEENT: Normocephalic, atraumatic. Extraocular eye muscles are intact. Mucous membranes are moist. PHYSICAL EXAMINATION MUSCULOSKELETAL: He has tenderness over his bilateral hips and pain radiating down his bilateral legs. He has tenderness in his lumbosacral region of his back. He moves independently from sitting to standing position and walks with a slightly antalgic gait. Lower extremity strength judged to be 5/5 in all major muscle groups. IMPRESSION: 1. Chronic intractable pain with multiple pain generators. 2. Post-laminectomy syndrome. 3. Diffuse osteoarthritis. 4. History of depression. 5. Management of intrathecal pump, increasing him today 7.3%. PROCEDURE: We interrogated his intrathecal pump with the Hulafrog device and increased him 7.3%, which is what the programming allowed. His current daily dose is 4.299 mg of hydromorphone a day. His alarm date will be 08/12/2019. I increased him to the rate that he was at previously not the 10% that he is requesting. His overall goal is to decrease his medicine and I reminded him about when I decided to increase only 7.3%. 1. We will send a medication script for gabapentin 300 mg 3 times a day. The patient has slowly been increasing this to see if it is helpful in reducing some of his bilateral leg pain as well as his neuropathy. 2. The patient was dismissed to home. The patient will return as needed or in July for a refill of his intrathecal pump. The patient is seen today under the collaboration with Dr. Rio Sheehan. <ELECTRONICALLY SIGNED> By: Joceline Betancur 04/09/19 0813 0930 0957 Joceline Betancur /juliana
== END | disposition home or self-care (01) ==
LOC: PAIN 06:41
DX: Z45.1 Encounter for adjustment and management of infusion pump (principal); G89.29 Other chronic pain; M54.9 Dorsalgia, unspecified; M96.1 Postlaminectomy syndrome, not elsewhere classified; M19.90 Unspecified osteoarthritis, unspecified site; Z79.891 Long term (current) use of opiate analgesic; Z91.040 Latex allergy status; Z88.8 Allergy status to other drugs, medicaments and biological substances; Z79.899 Other long term (current) drug therapy

== ENCOUNTER → 2019-06-04 | Outpatient (CLI) | payer BC | LOC: SJCVCIMAG 08:52 | DX: I08.1 Rheumatic disorders of both mitral and tricuspid valves (principal); I25.10 Atherosclerotic heart disease of native coronary artery without angina pectoris ==

== ENCOUNTER → 2019-08-04 | Outpatient (CLI) | payer BC ==
[~2019-08-04] VITALS: Ht 170.2 cm; Wt 96.6 kg
[~2019-08-04] MED LIST changes: +ASA81BEC PO; +REPATHA SU140 MG/1 M SUBQ
[2019-08-04 11:06] VITALS: BP 133/69
--- NOTE | 2019-08-04 11:11 | NUR ---
Pain Clinic Assessment: 1. History of Osteoarthritis: R KNEE R INDEX FINGER B/L SHOULDERS BACK History of Rheumatoid Arthritis: Not Applicable 2. Height: 5 ft. 7 in. 170.2 cm. Weight: 213.0 lb. oz. 96.616 kg. Patient's BMI: 33.4 3. Vital Signs: BP: 133/69 Pulse: 73 Resp: 16 Temp: 02 Sat: 97 ECG Mon: 4. Pain Intensity: 4 5. Fall Risk: Dizziness: N Needs help standing or walking: N Fallen in the last 3 months: N Fall risk comments: 6. Patient on Blood Thinner: None 7. History of Hypertension: N 8. Opioid Therapy greater than 6 weeks: Y Opiate Contract Signed: 9. Risk Assessment Tool Provided: LOW RISK 1 10. Functional Assessment Tool: 11. Recreational Drug Use: Never Drug Type: Tobacco Use: Never Smoker Tobacco Type: Amount or Packs/day: How Many Years: Alcohol Use: Yes Frequency: Quant:
--- NOTE | 2019-08-14 12:16 | HPC ---
[facility] [place] [address] PAIN MANAGEMENT CONSULTATION Name: SIMÓN PARHAM Room #: REG CLI Carlos.#: [id number] Admission: 08/04/19 Attend Phys: Rio Sheehan MD Discharge: Date of : 56 Report #: [id number] THIS REPORT FOR: cc: Rasheed Trinidad MD, Steven E. MD Morgan, Richard L. MD ~ CC: Rio Trinidad MD DATE OF SERVICE: 08/04/2019 Followup visit for refill of intrathecal infusion pump for chronic intractable pain. The patient is here today for refill of his intrathecal infusion pump. He has had 2 prior back surgeries, two shoulder surgeries. He has had a right knee replacement. 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 He lives with daily pain. He described it is sharp and crushing. He scores it is 4/10, worst pain is in his bilateral low back and also into his hips. Medications were reviewed and reconciled. Dr. Trinidad prescribes all of his oral medicines. PHYSICAL EXAMINATION: GENERAL: He is pleasant, alert and oriented, wearing dark glasses in the room as well as a mask for COVID restrictions. VITAL SIGNS: Blood pressure is 133/69, heart rate 73, BMI is 33.4. Slightly up over the last several months. MUSCULOSKELETAL: He has pain with movements from sitting to standing position. Complains of pain in his back, hips and leg with positive straight leg raising. He has numbness and tingling bilaterally in lower extremities. Pain around the knee with stiffness. Pain in his shoulders bilaterally. IMPRESSION: Chronic intractable pain. PROCEDURE: Refill and reprogramming intrathecal infusion pump. Skin prepped with ChloraPrep. A 22-gauge non-coring needle advanced in the pump. Old medication removed and discarded. Pump was then refilled with hydromorphone. Reprogramming session was performed. Daily dose is unchanged and he has enough medicine to last for about 5 months. Hydromorphone is 4.2 mg per day. [address] [address] PAIN MANAGEMENT CONSULTATION Name: SIMÓN PARHAM DEARBORN Room #: REG CLKiran Shepard#: [id number] Admission: 08/04/19 Attend Phys: Rio Sheehan MD Discharge: Date of : 56 Report #: [id number] Followup visit planned in November. <ELECTRONICALLY SIGNED> By: Rio Sheehan MD 08/14/19 1216 1427 2044 Rio Sheehan MD /nt
== END | disposition home or self-care (01) ==
LOC: PAIN 07:03
PROVIDERS: ATTEND Anesthesiology Pain Medicine
DX: Z45.1 Encounter for adjustment and management of infusion pump (principal); G89.29 Other chronic pain; M19.90 Unspecified osteoarthritis, unspecified site; G47.30 Sleep apnea, unspecified; Z91.040 Latex allergy status; Z88.8 Allergy status to other drugs, medicaments and biological substances; Z79.899 Other long term (current) drug therapy; Z98.890 Other specified postprocedural states

== ENCOUNTER → 2019-09-22 | Outpatient (CLI) | payer BC ==
[~2019-09-22] VITALS: Ht 170.2 cm; Wt 99.1 kg
[2019-09-22 09:39] VITALS: BP 126/75
--- NOTE | 2019-09-22 09:59 | NUR ---
Pain Clinic Assessment: 1. History of Osteoarthritis: R KNEE R INDEX FINGER B/L SHOULDERS BACK History of Rheumatoid Arthritis: DENIES 2. Height: 5 ft. 7 in. 170.2 cm. Weight: 218.4 lb. oz. 99.066 kg. Patient's BMI: 34.2 3. Vital Signs: BP: 126/75 Pulse: 65 Resp: 16 Temp: 02 Sat: 97 ECG Mon: 4. Pain Intensity: 7 avg 5. Fall Risk: Dizziness: N Needs help standing or walking: N Fallen in the last 3 months: N Fall risk comments: 6. Patient on Blood Thinner: None 7. History of Hypertension: N 8. Opioid Therapy greater than 6 weeks: Y Opiate Contract Signed: 9. Risk Assessment Tool Provided: LOW RISK 1 10. Functional Assessment Tool: 38 11. Recreational Drug Use: Never Drug Type: Tobacco Use: Never Smoker Tobacco Type: Amount or Packs/day: How Many Years: Alcohol Use: Yes Frequency: Quant:
--- NOTE | 2019-09-23 07:39 | HPC ---
[facility] [address] [address] PAIN MANAGEMENT CONSULTATION Name: SIMÓN PARHAM Room #: REG CLI M.R.#: [id number] Admission: 09/22/19 Attend Phys: Joceline Betancur Discharge: Date of : 56 Report #: [id number] THIS REPORT FOR: cc: Rasheed Trinidad MD, Steven E. MD Hocker, Amanda CNS ~ CC: Rio Sheehan MD DATE OF SERVICE: 09/22/2019 CHIEF COMPLAINT: Chronic intractable back pain. HISTORY OF PRESENT ILLNESS: This is a 59-year-old gentleman who returns today to the pain clinic to have his intrathecal pump increased. He states he has been having ongoing low back pain that radiates into his bilateral hips. He has been unable to sleep on his hips at night and he awakes multiple times. He states that it is a burning feeling and occasionally sharp, rating his pain score 7/10. He has been taking some Percocet from his primary caregiver up to 4 times a day, which is an increase for him. He said normally he would only take one of those tablets on average a day. The patient reports to me that he is thinking about having a spinal cord stimulator trial with Dr. Marques. He is going to see him on October 12 to discuss this further. The patient has also been having physical therapy on his neck. He has been having some myofascial tightness in his upper shoulders. He was considering trigger point injections in that area by Dr. Sheehan in the future if the physical therapy does not help. ALLERGIES: LATEX, VANCOMYCIN, SERTRALINE, FLEXERIL, PROCHLORPERAZINE, HUMIRA, REMICADE, SHRIMP. MEDICATIONS: Repatha, aspirin, belladonna opium p.r.n., Sunosi, Xiidra, acyclovir, MiraLax, Valium, oxycodone 10/325, Celebrex, AndroGel and Protonix. PATIENT'S PQRS: 1. He has diffuse osteoarthritis. 2. Height is 5 feet 7 inches, weight is 218, BMI is 34. 3. Vital signs 126/75, pulse is 65, respirations 16, oxygen sat is 97%. 4. Pain score is 7/10. 5. Denies dizziness, does not need help walking or standing, has not fallen in the last 3 months. 6. The patient is not on any blood thinners or medicine for hypertension. His opioid therapy is greater than 6 weeks, meds from his primary doctor. Risk assessment tool is low. Functional assessment is 38/70. 7. Recreational drug use, he denies. He is not a smoker [place] [address] PAIN MANAGEMENT CONSULTATION Name: SIMÓN PARHAM Room #: REG SILVANA Shepard#: [id number] Admission: 09/22/19 Attend Phys: Joceline Betancur Discharge: Date of : 56 Report #: [id number] PHYSICAL EXAMINATION: GENERAL: This is a pleasant, alert 59-year-old gentleman who appears his stated age, placing his current pain score today at 7/10. HEENT: Normocephalic, atraumatic. He is wearing darker glasses and a mask. MUSCULOSKELETAL: He has pain with movements from the sitting to standing position. Pain in the lumbar spine that radiates into his bilateral hips, has a burning tingly feeling in his lower extremities. His pain in his shoulders bilaterally and his upper trapezius. He has positive straight leg raising. IMPRESSION: 1. Chronic intractable pain. 2. Myofascial pain. 3. Diffuse osteoarthritis. 4. Trochanteric bursitis. 5. Prior back surgeries. 6. Intrathecal infusion pump. Plan: We will adjust his intrathecal pump, raising his hydromorphone 11.6%. This was done via the [employer] device, current settings will be hydromorphone 4.798 mg per day. This will change his intrathecal infusion rate to December 05. The patient instructed to call for an appointment prior to that time. Dr. Sheehan did discuss with him briefly while he did come and see him today about a possible transforaminal steroid injection. The patient has had injections in the past that has been beneficial. The patient will see if this increase in his intrathecal pump has been beneficial in decreasing his pain. If not, he will call to schedule an appointment for a bilateral transforaminal steroid injection by Dr. Rio Sheehan prior to his next intrathecal pump refill. The patient seen again in collaboration with Dr. Rio Sheehan. <ELECTRONICALLY SIGNED> By: Joceline Betancur 09/23/19 0739 1213 1425 Joceline Betancur /juliana
== END | disposition home or self-care (01) ==
LOC: PAIN 06:48
PROVIDERS: ATTEND Clinical Nurse Specialist Adult Health
DX: Z45.1 Encounter for adjustment and management of infusion pump (principal); G89.29 Other chronic pain; M79.18 Myalgia, other site; M19.90 Unspecified osteoarthritis, unspecified site; Z98.890 Other specified postprocedural states; Z79.899 Other long term (current) drug therapy; Z91.040 Latex allergy status; Z88.8 Allergy status to other drugs, medicaments and biological substances

== ENCOUNTER → 2019-12-04 | Outpatient (CLI) | payer OTHER, BC ==
[~2019-12-04] VITALS: Ht 170.2 cm; Wt 97.0 kg
--- NOTE | ~2019-12-04 | HPC ---
[facility] [place] [address] PAIN MANAGEMENT CONSULTATION Name: SIMÓN PARHAM Room #: REG CLI GlennaNishCelena.#: [id number] Admission: 12/04/19 Attend Phys: Rio Sheehan MD Discharge: Date of : 56 Report #: [id number] CC: Rio Trinidad MD DATE OF SERVICE: 12/04/2019 Followup visit for refill of intrathecal infusion pump. The patient is here today for refill of his intrathecal infusion pump. The procedure was performed under my direction by nurse, Caroline Fuentes. His pump is infusing hydromorphone as monotherapy and his daily dose currently is stable at 4.7 mg. Much of his visit today with the nurse was spent discussing politics. He scores his average daily pain at this point in time is 5/10. His PQRS was reviewed. It demonstrates multiple joints of arthritis including right knee, bilateral shoulders and back. His BMI is 33.5. PHYSICAL EXAMINATION: VITAL SIGNS: His blood pressure is 136/72, heart rate 65, respirations 16, O2 sat 98. Pain pump is in the right lower abdomen and nontender. IMPRESSION: 1. Chronic intractable pain, multiple pain generators 2. Diffuse osteoarthritis, myofascial pain, trochanteric bursitis and multiple prior surgeries. 3. Management of intrathecal infusion pump. PROCEDURE: After informed consent, skin was prepped with ChloraPrep. Skin anesthetized and a 22-gauge non-coring needle advanced in the pump. Old medication removed and discarded per protocol by nurse Alfredo. The pump was then refilled with hydromorphone 15 mg per mL and reprogramming session was performed. I reviewed the report along with Caroline Gallego and we both initial the proper programming settings and a copy was provided to the patient. He understands the importance of keeping his appointments. He is next to be seen in March. By: 1231 1555 Rio Sheehan MD /nt
[2019-12-04 11:12] VITALS: BP 136/72
--- NOTE | 2019-12-04 11:19 | NUR ---
Pain Clinic Assessment: 1. History of Osteoarthritis: R KNEE R INDEX FINGER B/L SHOULDERS BACK History of Rheumatoid Arthritis: DENIES 2. Height: 5 ft. 7 in. 170.2 cm. Weight: 213.8 lb. oz. 96.979 kg. Patient's BMI: 33.5 3. Vital Signs: BP: 136/72 Pulse: 65 Resp: 16 Temp: 02 Sat: 98 ECG Mon: 4. Pain Intensity: 5 5. Fall Risk: Dizziness: N Needs help standing or walking: N Fallen in the last 3 months: N Fall risk comments: 6. Patient on Blood Thinner: None 7. History of Hypertension: N 8. Opioid Therapy greater than 6 weeks: Y Opiate Contract Signed: 9. Risk Assessment Tool Provided: LOW RISK 1 10. Functional Assessment Tool: 38 11. Recreational Drug Use: Never Drug Type: Tobacco Use: Never Smoker Tobacco Type: Amount or Packs/day: How Many Years: Alcohol Use: Yes Frequency: Special Occasions Quant: 1 SPECIAL OCCASIONS
== END | disposition home or self-care (01) ==
LOC: PAIN 06:55
PROVIDERS: ATTEND Anesthesiology Pain Medicine
DX: G89.29 Other chronic pain (principal); M19.90 Unspecified osteoarthritis, unspecified site; M70.60 Trochanteric bursitis, unspecified hip; G47.30 Sleep apnea, unspecified; Z79.899 Other long term (current) drug therapy; Z98.890 Other specified postprocedural states; Z72.89 Other problems related to lifestyle

== ENCOUNTER 2020-01-09 05:34 | Emergency (ER) | payer OTHER, BC ==
[~2020-01-09] VITALS: Ht 170.2 cm; Wt 95.3 kg
[2020-01-09] MEDS ORDERED: FINASTERIDE5 MG PO (06:11)
[2020-01-09 06:13] LABS: ABSOLUTE NEUTROPHILS 2.4 thou/uL (1.4-8.2); BASOPHILS 0.4 % (0.0-2.0); EOSINOPHILS 0.5 % (0.0-3.0); HEMATOCRIT 42.5 % (42.0-52.0); HEMOGLOBIN 13.9 gm/dL (14.0-18.0); LYMPHOCYTES 42.3 % (24.0-44.0); MCH 26.8 pg (26.0-34.0); MCHC 32.8 g/dL (28.0-37.0); MCV 81.7 fL (80.0-100.0); MONOCYTES 9.6 % (1.0-8.0); PLATELET COUNT 155 thou/uL (150-400); POLYS 47.2 % (36.0-66.0); RBC 5.21 mil/uL (4.50-6.00); RDW 14.2 % (10.5-14.5)
[2020-01-09 06:20] LABS: CALCIUM 8.9 mg/dL (8.5-10.1); CREATININE 0.9 mg/dL (0.7-1.3)
[2020-01-09 06:26] LABS: ALBUMIN 3.8 g/dL (3.4-5.0); TOTAL BILIRUBIN 0.5 mg/dL (0.2-1.0); TOTAL PROTEIN 7.1 g/dL (6.4-8.2)
[2020-01-09 07:03] VITALS: BP 147/81
--- NOTE | 2020-01-09 07:41 | EKG ---
[facility] [place] [address] ELECTROCARDIOGRAM REPORT Name: SIMÓN PARHAM Room #: REG [facility].#: [id number] Admission: 01/09/20 Attend Phys: Discharge: Date of : 56 Report #: [id number] THIS REPORT FOR: cc: Rasheed Trinidad MD, Steven E. 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 clark rn : 1960 Requested By: Dio Calderon Order Number: [id number] MD: Gurinder Montenegro Measurements Intervals [place] Rate: 54 P: 36 MD: 163 QRS: -3 QRSD: 104 T: 20 QT: 411 QTc: 390 Interpretive Statements Sinus rhythm Compared to ECG 11/13/2018 07:23:07 ST (T wave) deviation no longer present Electronically Signed On 01-09-2020 7:41:35 CERTIFIED INDOOR ENVIRONMENTALIST by Gurinder Montenegro [email or web address] <ELECTRONICALLY SIGNED> By: Gurinder Montenegro MD, FACC 01/09/20 0741 7 7 Gurinder Montenegro MD, [facility] /EPI
[2020-01-09] MEDS ORDERED: BENTYL 20 MG TA20 M1 PO (10:15)
[2020-01-09] MEDS ORDERED: KRISTALOSE20 GM PO (10:15)
[2020-01-09] MEDS ORDERED: ZOFRAN ODT4 MG PO (15:32)
== END 2020-01-09 10:42 | disposition home or self-care (01) ==
LOC: ER 05:34
PROVIDERS: Emergency Medicine
DX: R10.12 Left upper quadrant pain (principal); I10 Essential (primary) hypertension; Z90.89 Acquired absence of other organs; Z79.899 Other long term (current) drug therapy; Z79.82 Long term (current) use of aspirin; Z88.1 Allergy status to other antibiotic agents; Z88.8 Allergy status to other drugs, medicaments and biological substances; Z91.040 Latex allergy status; Z91.013 Allergy to seafood

== ENCOUNTER → 2020-02-09 | Outpatient (CLI) | payer OTHER, BC ==
[~2020-02-09] VITALS: Ht 170.2 cm; Wt 101.3 kg
[~2020-02-09] MED LIST changes: +BENTYL 20 MG TA20 M1 PO; +FINASTERIDE5 MG PO; +KRISTALOSE20 GM PO; +ZOFRAN ODT4 MG PO
[2020-02-09 13:07] VITALS: BP 131/69
--- NOTE | 2020-02-09 13:25 | NUR ---
Pain Clinic Assessment: 1. History of Osteoarthritis: R KNEE R INDEX FINGER B/L SHOULDERS BACK History of Rheumatoid Arthritis: DENIES 2. Height: 5 ft. 7 in. 170.2 cm. Weight: 223.4 lb. oz. 101.334 kg. Patient's BMI: 35.0 3. Vital Signs: BP: 131/69 Pulse: 73 Resp: 16 Temp: 02 Sat: 99 ECG Mon: 4. Pain Intensity: 6 5. Fall Risk: Dizziness: N Needs help standing or walking: N Fallen in the last 3 months: N Fall risk comments: 6. Patient on Blood Thinner: None 7. History of Hypertension: N 8. Opioid Therapy greater than 6 weeks: Y Opiate Contract Signed: 9. Risk Assessment Tool Provided: LOW RISK 1 10. Functional Assessment Tool: 38 11. Recreational Drug Use: Never Drug Type: Tobacco Use: Never Smoker Tobacco Type: Amount or Packs/day: How Many Years: Alcohol Use: Yes Frequency: Special Occasions Quant: 1
== END | disposition home or self-care (01) ==
LOC: PAIN 01-12 06:51
PROVIDERS: ATTEND Anesthesiology Pain Medicine
DX: M54.16 Radiculopathy, lumbar region (principal); G89.29 Other chronic pain; M19.90 Unspecified osteoarthritis, unspecified site; Z98.890 Other specified postprocedural states; Z79.899 Other long term (current) drug therapy; Z91.040 Latex allergy status; Z88.8 Allergy status to other drugs, medicaments and biological substances

== ENCOUNTER → 2020-03-04 | Outpatient (CLI) | payer OTHER, BC ==
[~2020-03-04] VITALS: Ht 170.2 cm; Wt 102.2 kg
[2020-03-04 10:10] VITALS: BP 139/79
--- NOTE | 2020-03-04 10:21 | NUR ---
Pain Clinic Assessment: 1. History of Osteoarthritis: R KNEE R INDEX FINGER B/L SHOULDERS BACK History of Rheumatoid Arthritis: DENIES 2. Height: 5 ft. 7 in. 170.2 cm. Weight: 225.4 lb. oz. 102.241 kg. Patient's BMI: 35.3 3. Vital Signs: BP: 139/79 Pulse: 75 Resp: 16 Temp: 02 Sat: 98 ECG Mon: 4. Pain Intensity: 6 5. Fall Risk: Dizziness: N Needs help standing or walking: N Fallen in the last 3 months: N Fall risk comments: 6. Patient on Blood Thinner: None 7. History of Hypertension: N 8. Opioid Therapy greater than 6 weeks: Y Opiate Contract Signed: 9. Risk Assessment Tool Provided: LOW RISK 1 10. Functional Assessment Tool: 38 11. Recreational Drug Use: Never Drug Type: Tobacco Use: Never Smoker Tobacco Type: Amount or Packs/day: How Many Years: Alcohol Use: Yes Frequency: Quant: VERY, VERY LITTLE
--- NOTE | 2020-03-10 09:56 | HPC ---
[facility] [address] [address] [place] [address] PAIN MANAGEMENT CONSULTATION Name: SIMÓN PARHAM Room #: REG CLI M..#: [id number] Admission: 03/04/20 Attend Phys: Joceline Betancur Discharge: Date of : 56 Report #: [id number] THIS REPORT FOR: cc: Rasheed Trinidad MD, Steven E. MD Hocker,Joceline BIGGS ~ DATE OF SERVICE: 03/04/2020 CHIEF COMPLAINT: Chronic pain, lumbar radiculopathy. HISTORY OF PRESENT ILLNESS: This is a 59-year-old gentleman, who returns to the pain clinic today reporting an increase in pain of 6/10 in his lower back and right leg, especially cramping in his lower calf area. He does report that the right transforaminal Dr. Rio Sheehan performed in January helped at least 50%, but continues to have ongoing right leg pain. Today, he is requesting an increase in his intrathecal pump. His current dose is 4.79 mg of hydromorphone a day intrathecally and he also takes an average of one tablet of oxycodone at bedtime. The patient reports increase in pain, especially when standing or weather changes. He denies constipation issues that are significant. The patient has not started the 3% diclofenac gel that Dr. Sheehan prescribed in January. He is utilizing his 1% gel and using that before he changes. The patient reports still continuing discussions with Dr. Marques regarding a spinal cord stimulator device. He is going to see the nurse practitioner this afternoon at his 's visit and is going to ask them about the device again while there. He reports he may have some information to provide to us about his decision when he comes for his next intrathecal pump refill in March. ALLERGIES: SHRIMP, LATEX, VANCOMYCIN, REMICADE, HUMIRA, PROCHLORPERAZINE, SERTRALINE AND FLEXERIL. CURRENT LIST OF MEDICATIONS: Bentyl, lactulose, finasteride, Repatha, aspirin, belladonna/opium p.r.n., Sunosi, Xiidra, acyclovir, MiraLax, Restasis, Clobex, Valium, oxycodone 10/325, AndroGel, and Protonix. PQRS: 1. He has osteoarthritic changes that are diffuse in his knees, shoulders and back. His height is 5 feet 7 inches, weight 225. BMI is 35. 2. Vital signs 139/79, pulse is 75, respirations 16, oxygen sat is 98%. Pain score 6/10. Fall risk: Denies dizziness, does not need assistance with ambulation, has not fallen in the last 3 months. The patient is not on any blood thinners or medication for hypertension. His opioid therapy is greater than 6 weeks. Risk assessment is low. Functional assessment is 38/70. 3. Recreational drug use, he denies. He is not a smoker and occasionally drinks alcohol socially. [address] [address] PAIN MANAGEMENT CONSULTATION Name: SIMÓN PARHAM Room #: REG CLKiran Shepard#: [id number] Admission: 03/04/20 Attend Phys: Joceline Betancur Discharge: Date of : 56 Report #: [id number] PHYSICAL EXAMINATION: GENERAL: This is alert and orientated, slightly depressed 59-year-old gentleman, who appears his stated age, placing his current pain score is 6/10. HEENT: Normocephalic, atraumatic. Extraocular eye muscles are intact. He is wearing a mask. His sclerae are slightly reddened. MUSCULOSKELETAL: He has tenderness in his lumbosacral spine with significant scarring from multiple surgeries. He has an intrathecal pump in his abdomen, right lower quadrant. Pain radiates down his right leg following the L4-L5 dermatomal distribution with a burning sensation in his foot. He walks with a slightly antalgic gait. His lower extremity strength is symmetrical at 5/5. IMPRESSION: 1. Lumbar radiculopathy. 2. Spinal stenosis. 3. Post-laminectomy syndrome. 4. Diffuse osteoarthritis. 5. History of depression. 6. Management of intrathecal infusion pump with hydromorphone. PLAN: 1. Today, we did increase his intrathecal pump adjusting his medication 10%. This raised his hydromorphone dose from 4.798 mg a day to now currently hydromorphone 5.285 mg per day. Again, this is a 10% increase. 2. The patient is utilizing his oral breakthrough pain medicine very sparingly, averaging one tablet a day. He is not needing any prescriptions filled today. 3. The patient will follow up with Dr. Marques prior to his next pump refill that is scheduled for 03/29 and will notify us of any decisions that have been made at that appointment. 4. The patient is seen today in collaboration with Dr. Sheehan for this intrathecal pump adjustment. <ELECTRONICALLY SIGNED> By: Joceline Betancur 03/10/20 0956 1052 1116 Joceline Betancur /juliana
== END ==
LOC: PAIN 06:39
PROVIDERS: ATTEND Clinical Nurse Specialist Adult Health
DX: G89.29 Other chronic pain (principal); M54.16 Radiculopathy, lumbar region; M48.00 Spinal stenosis, site unspecified; M19.90 Unspecified osteoarthritis, unspecified site; M96.1 Postlaminectomy syndrome, not elsewhere classified; Z88.8 Allergy status to other drugs, medicaments and biological substances; Z68.35 Body mass index [BMI] 35.0-35.9, adult; Z98.890 Other specified postprocedural states; Z79.899 Other long term (current) drug therapy; Z79.891 Long term (current) use of opiate analgesic

== ENCOUNTER → 2020-03-29 | Outpatient (CLI) | payer OTHER, BC ==
[~2020-03-29] VITALS: Ht 170.2 cm; Wt 104.2 kg
[2020-03-29 09:39] VITALS: BP 125/79
--- NOTE | 2020-03-29 09:49 | NUR ---
Pain Clinic Assessment: 1. History of Osteoarthritis: R KNEE R INDEX FINGER B/L SHOULDERS BACK History of Rheumatoid Arthritis: DENIES 2. Height: 5 ft. 7 in. 170.2 cm. Weight: 229.8 lb. oz. 104.237 kg. Patient's BMI: 36.0 3. Vital Signs: BP: 125/79 Pulse: 80 Resp: 18 Temp: 02 Sat: 98 ECG Mon: 4. Pain Intensity: 4 5. Fall Risk: Dizziness: N Needs help standing or walking: N Fallen in the last 3 months: N Fall risk comments: 6. Patient on Blood Thinner: None 7. History of Hypertension: N 8. Opioid Therapy greater than 6 weeks: Y Opiate Contract Signed: 9. Risk Assessment Tool Provided: LOW RISK 1 10. Functional Assessment Tool: 38 11. Recreational Drug Use: Never Drug Type: Tobacco Use: Never Smoker Tobacco Type: Amount or Packs/day: How Many Years: Alcohol Use: Yes Frequency: Quant:
== END | disposition home or self-care (01) ==
LOC: PAIN 06:49
PROVIDERS: ATTEND Anesthesiology Pain Medicine
DX: G89.29 Other chronic pain (principal); M47.26 Other spondylosis with radiculopathy, lumbar region; M96.1 Postlaminectomy syndrome, not elsewhere classified; Y83.8 Other surgical procedures as the cause of abnormal reaction of the patient, or of later complication, without mention of misadventure at the time of the procedure; Z88.8 Allergy status to other drugs, medicaments and biological substances; Z90.13 Acquired absence of bilateral breasts and nipples; Z91.040 Latex allergy status; Z88.1 Allergy status to other antibiotic agents; Z88.2 Allergy status to sulfonamides

== ENCOUNTER → 2020-04-29 | Outpatient (CLI) | payer OTHER, BC | LOC: SJCVC 09:28 | PROVIDERS: ATTEND Internal Medicine Cardiovascular Disease | DX: R94.31 Abnormal electrocardiogram [ECG] [EKG] (principal); I45.10 Unspecified right bundle-branch block; I25.10 Atherosclerotic heart disease of native coronary artery without angina pectoris; I10 Essential (primary) hypertension; E78.00 Pure hypercholesterolemia, unspecified; K21.9 Gastro-esophageal reflux disease without esophagitis; E78.5 Hyperlipidemia, unspecified; G47.33 Obstructive sleep apnea (adult) (pediatric); M19.90 Unspecified osteoarthritis, unspecified site; Z91.040 Latex allergy status; Z79.899 Other long term (current) drug therapy; Z72.89 Other problems related to lifestyle; Z88.8 Allergy status to other drugs, medicaments and biological substances; Z88.1 Allergy status to other antibiotic agents ==

== ENCOUNTER → 2020-06-23 | Outpatient (CLI) | payer OTHER, BC | LOC: SJCVC 09:17 | PROVIDERS: ATTEND Internal Medicine Cardiovascular Disease | DX: E78.00 Pure hypercholesterolemia, unspecified (principal); G47.33 Obstructive sleep apnea (adult) (pediatric); I25.10 Atherosclerotic heart disease of native coronary artery without angina pectoris; I10 Essential (primary) hypertension; Z79.899 Other long term (current) drug therapy ==

== ENCOUNTER → 2020-07-12 | Outpatient (CLI) | payer OTHER, BC ==
[~2020-07-12] VITALS: Ht 170.2 cm; Wt 100.6 kg
[~2020-07-12] MED LIST changes: +SULFASALAZINE500 M5 PO
[2020-07-12 09:38] VITALS: BP 122/70
--- NOTE | 2020-07-12 09:39 | NUR ---
Pain Clinic Assessment: 1. History of Osteoarthritis: R KNEE R INDEX FINGER B/L SHOULDERS BACK History of Rheumatoid Arthritis: DENIES 2. Height: 5 ft. 7 in. 170.2 cm. Weight: 221.8 lb. oz. 100.608 kg. Patient's BMI: 34.7 3. Vital Signs: BP: 122/70 Pulse: 72 Resp: 18 Temp: 02 Sat: 97 ECG Mon: 4. Pain Intensity: 3 5. Fall Risk: Dizziness: N Needs help standing or walking: N Fallen in the last 3 months: N Fall risk comments: 6. Patient on Blood Thinner: None 7. History of Hypertension: N 8. Opioid Therapy greater than 6 weeks: Y Opiate Contract Signed: 9. Risk Assessment Tool Provided: LOW RISK 1 10. Functional Assessment Tool: 38 11. Recreational Drug Use: Never Drug Type: Tobacco Use: Never Smoker Tobacco Type: Amount or Packs/day: How Many Years: Alcohol Use: Yes Frequency: Quant:
== END | disposition home or self-care (01) ==
LOC: PAIN 07:09
PROVIDERS: ATTEND Anesthesiology Pain Medicine
DX: Z45.1 Encounter for adjustment and management of infusion pump (principal); M54.5 Low back pain; G89.29 Other chronic pain; M96.1 Postlaminectomy syndrome, not elsewhere classified; M19.90 Unspecified osteoarthritis, unspecified site; F32.9 Major depressive disorder, single episode, unspecified; Z98.890 Other specified postprocedural states; Z79.899 Other long term (current) drug therapy; Z88.8 Allergy status to other drugs, medicaments and biological substances

== ENCOUNTER → 2020-07-19 | Outpatient (CLI) | payer OTHER, MEDICARE | LOC: SJCVCIMAG 07:49 | PROVIDERS: ATTEND Internal Medicine Cardiovascular Disease | DX: R00.0 Tachycardia, unspecified (principal); I49.3 Ventricular premature depolarization; R06.00 Dyspnea, unspecified; R53.83 Other fatigue; R07.89 Other chest pain; I10 Essential (primary) hypertension; I25.10 Atherosclerotic heart disease of native coronary artery without angina pectoris; E78.00 Pure hypercholesterolemia, unspecified; K21.9 Gastro-esophageal reflux disease without esophagitis; G89.29 Other chronic pain; E78.5 Hyperlipidemia, unspecified; G47.33 Obstructive sleep apnea (adult) (pediatric); Z90.49 Acquired absence of other specified parts of digestive tract; Z98.890 Other specified postprocedural states; Z88.8 Allergy status to other drugs, medicaments and biological substances; Z79.82 Long term (current) use of aspirin; Z79.899 Other long term (current) drug therapy; Z82.49 Family history of ischemic heart disease and other diseases of the circulatory system ==

== ENCOUNTER 2020-07-20 12:37 | Inpatient (IN) | payer OTHER, MEDICARE ==
[2020-07-20] VITALS (7 sets, daily range): BP systolic 128–151; BP diastolic 65–75
[~2020-07-20] VITALS: Ht 170.2 cm; Wt 99.8 kg
--- NOTE | 2020-07-20 16:45 | CATHLAB ---
[facility] [place] [address] INVASIVE PROCEDURE REPORT Name: SIMÓN PARHAM Room #: 205-P ADM IN M.R.#: [id number] Admission: 07/20/20 Attend Phys: Ian Martinez MD Discharge: Date of : 56 Report #: [id number] THIS REPORT FOR: cc: Rasheed Trinidad MD, Steven E. MD Park, Jin S. MD ~ APPROVED REPORT Study performed: 07/20/2020 14:39:06 Patient Details Patient Status: Out-Patient Room #: The patient is a 60 year-old male Event Personnel Ian Martinez Manager Equity, Emil Bergman RTR Justice Webb Dexter RN RN, Anum Shoemaker RN RN, Maribel Woody RTR, [employer] INTERN Monitor Procedures Performed Art Access - R femoral artery* Left Heart Cath w/or w/o Coronaries 1131608 C FFR [id number] FFR Hemostasis w/ Mynx 12610 Initial Mod Sed Same Phys/QHP Gr5y 908957 68039 Mod Sed Same Phys/QHP Ea 276984 Indication Dyspnea, Positive stress test, Chest pain Risk Factors Hypercholesterolemia, Coronary Artery DiseaseHypertension Procedure Narrative The Right Groin^ was infiltrated with 1% Lidocaine subcutaneous anesthesia. A PINNACLE 4FR Sheath #[id number] sheath was inserted into the RFA^. Coronary angiography was performed using coronary diagnostic catheters. The right coronary system was accessed and visualized with a JR4 catheter. The left coronary system was accessed and visualized with a JL4 catheter. The left ventricle was accessed and visualized with a JR4 catheter. Left ventricular/Aortic Valve gradient assessed via catheter pullback. Pre-demployment femoral angiogram was performed . Closure device was deployed with a 6 Fr MYNX CONTROL 6F/7F L#[id number]. The patient tolerated the procedure well and there were no complications associated with the procedure. There was no hematoma. [facility] [address] [place] [address] INVASIVE PROCEDURE REPORT Name: SIMÓN PARHAM Room #: 205-P [facility] .R.#: [id number] Admission: 07/20/20 Attend Phys: Ian Martinez MD Discharge: Date of : 56 Report #: [id number] Intraoperative Conscious Sedation Sedation start time: 15:06 Case end Time: 15:58 Fentanyl 200 mcg Versed 3 mg Fluoro Time: 8.44 minutes Dose: DAP 30960.70 cGycm2 1492 mGy Contrast Type and Amount: Omnipaque 155 ml Coronary Angiography The patient's coronary anatomy is right dominant. Diagnostic Cath Left Main The left main artery is a patent vessel, with no flow-limiting lesions. LAD The LAD is a moderate-sized caliber vessel, traverses the anterior wall and wraps around the apex. There is mild diffuse disease in the proximal segment, 30%. Diagonal 1 This is a small to moderate-sized caliber vessel with a moderate stenosis in the ostial/proximal segment, 40-50%. Circumflex There is mild disease in the proximal segment, supplies 1 OM vessel. OM1 This is a small to moderate-sized caliber vessel with a borderline stenosis in the proximal segment. Right Coronary The RCA is a moderate-sized caliber vessel, dominant. There is mild diffuse disease in the midsegment, 30%. R PDA This is a moderate-sized caliber vessel, has an early takeoff from the RCA. There are no flow-limiting lesions in this vessel. RPLV This is a moderate-sized caliber vessel, patent with no flow-limiting lesions. Left Ventriculography Left Ventriculography was not performed. Ejection Fraction was 50-55% based off patient's Nuclear Cardiac Stress Test. An LVEDP was measured and there is no gradient across the outflow tract. Hemodynamics The aortic pressure is 171/83 mmHg with a mean of 113 mmHg. The left ventricular pressure is 156/13 mmHg with a mean of mmHg. The left ventricular end diastolic pressure is 21 mmHg. PCI Technique Lesion [facility] [address] [place] [address] INVASIVE PROCEDURE REPORT Name: SIMÓN PARHAM Room #: 205-P ADM IN M.R.#: [id number] Admission: 07/20/20 Attend Phys: Ian Martinez MD Discharge: Date of : 56 Report #: [id number] Percutaneous coronary intervention was performed on the first obtuse marginal branch segment. A VISTA 6FR JL4 #[id number] Guide Catheter was used to engage the ostium. A Aeris Pressure Wire 175 cm [id number] Interventional Guidewire was used to cross the lesion. COMMENTS PRE FFR=1.00 iFR=.96 Conclusion 1. There is mild disease in the proximal LAD and mid RCA. 2. There is a moderate stenosis in the ostial/proximal segment of the first diagonal artery. 3. There is a 50 to 70% stenosis in the proximal segment of OM1. 4. iFR performed on the first obtuse marginal artery, value of 0.96. 5. Recommend risk factor management. <ELECTRONICALLY SIGNED> By: Ian Martinez MD 07/20/20 1644 164 164 Ian Martinez MD /INF
== END 2020-07-20 20:00 | disposition home or self-care (01) | DRG 287 ==
LOC: CATH 12:37 → 2N 16:19
PROVIDERS: ADMIT Internal Medicine Cardiovascular Disease; ATTEND Internal Medicine Cardiovascular Disease
PROC: B2111ZZ Fluoroscopy of Multiple Coronary Arteries using Low Osmolar Contrast (ICD-10-PCS; principal; 2020-07-20)
PROC: 4A023N7 Measurement of Cardiac Sampling and Pressure, Left Heart, Percutaneous Approach (ICD-10-PCS; principal; 2020-07-20)
PROC: 4A033BC Measurement of Arterial Pressure, Coronary, Percutaneous Approach (ICD-10-PCS; principal; 2020-07-20)
DX: I25.10 Atherosclerotic heart disease of native coronary artery without angina pectoris (principal); G47.33 Obstructive sleep apnea (adult) (pediatric); K21.9 Gastro-esophageal reflux disease without esophagitis; G89.29 Other chronic pain; N40.0 Benign prostatic hyperplasia without lower urinary tract symptoms; E78.00 Pure hypercholesterolemia, unspecified; I10 Essential (primary) hypertension; M19.90 Unspecified osteoarthritis, unspecified site; Z88.8 Allergy status to other drugs, medicaments and biological substances; Z88.1 Allergy status to other antibiotic agents; Z91.040 Latex allergy status; Z91.013 Allergy to seafood; Z79.899 Other long term (current) drug therapy; Z90.49 Acquired absence of other specified parts of digestive tract
CPT/HCPCS: 10797

== ENCOUNTER → 2020-07-22 | Outpatient (CLI) | payer OTHER, MEDICARE ==
[~2020-07-22] VITALS: Ht 170.2 cm; Wt 99.1 kg
[2020-07-22 10:24] VITALS: BP 106/66
--- NOTE | 2020-07-22 10:37 | NUR ---
Pain Clinic Assessment: 1. History of Osteoarthritis: R KNEE R INDEX FINGER B/L SHOULDERS BACK History of Rheumatoid Arthritis: DENIES 2. Height: 5 ft. 7 in. 170.2 cm. Weight: 218.4 lb. oz. 99.066 kg. Patient's BMI: 34.2 3. Vital Signs: BP: 106/66 Pulse: 61 Resp: 20 Temp: 02 Sat: 97 ECG Mon: 4. Pain Intensity: 6 5. Fall Risk: Dizziness: N Needs help standing or walking: N Fallen in the last 3 months: N Fall risk comments: 6. Patient on Blood Thinner: None 7. History of Hypertension: N 8. Opioid Therapy greater than 6 weeks: Y Opiate Contract Signed: 9. Risk Assessment Tool Provided: LOW RISK 1 10. Functional Assessment Tool: 38 11. Recreational Drug Use: Never Drug Type: Tobacco Use: Never Smoker Tobacco Type: Amount or Packs/day: How Many Years: Alcohol Use: Yes Frequency: Special Occasions Quant: 1
== END | disposition home or self-care (01) ==
LOC: PAIN 07:04
PROVIDERS: ATTEND Anesthesiology Pain Medicine
DX: M70.62 Trochanteric bursitis, left hip (principal); M70.61 Trochanteric bursitis, right hip; G89.29 Other chronic pain; M19.90 Unspecified osteoarthritis, unspecified site; Z98.890 Other specified postprocedural states; Z79.899 Other long term (current) drug therapy; Z88.8 Allergy status to other drugs, medicaments and biological substances; Z91.040 Latex allergy status; Z79.82 Long term (current) use of aspirin

== ENCOUNTER → 2020-08-10 | Outpatient (CLI) | payer OTHER, MEDICARE | LOC: SJCVC 10:12 | PROVIDERS: ATTEND Internal Medicine Cardiovascular Disease | DX: I25.10 Atherosclerotic heart disease of native coronary artery without angina pectoris (principal); I10 Essential (primary) hypertension; E78.00 Pure hypercholesterolemia, unspecified; K21.9 Gastro-esophageal reflux disease without esophagitis; G47.33 Obstructive sleep apnea (adult) (pediatric); G89.29 Other chronic pain; M19.90 Unspecified osteoarthritis, unspecified site; I70.8 Atherosclerosis of other arteries; E27.40 Unspecified adrenocortical insufficiency; R53.83 Other fatigue; E78.5 Hyperlipidemia, unspecified; K31.84 Gastroparesis; L40.8 Other psoriasis; N41.8 Other inflammatory diseases of prostate; M47.26 Other spondylosis with radiculopathy, lumbar region; Z88.1 Allergy status to other antibiotic agents; Z88.8 Allergy status to other drugs, medicaments and biological substances; Z79.82 Long term (current) use of aspirin; Z79.891 Long term (current) use of opiate analgesic; Z79.899 Other long term (current) drug therapy; Z79.2 Long term (current) use of antibiotics; Z72.89 Other problems related to lifestyle; Z95.818 Presence of other cardiac implants and grafts ==

== ENCOUNTER → 2020-08-12 | Outpatient (CLI) | payer OTHER, MEDICARE ==
[~2020-08-12] VITALS: Ht 170.2 cm; Wt 101.2 kg
[2020-08-12 10:18] VITALS: BP 143/69
--- NOTE | 2020-08-12 10:22 | NUR ---
Pain Clinic Assessment: 1. History of Osteoarthritis: R KNEE R INDEX FINGER B/L SHOULDERS BACK History of Rheumatoid Arthritis: DENIES 2. Height: 5 ft. 7 in. 170.2 cm. Weight: 223.0 lb. oz. 101.152 kg. Patient's BMI: 34.9 3. Vital Signs: BP: 143/69 Pulse: 65 Resp: 16 Temp: 02 Sat: 96 ECG Mon: 4. Pain Intensity: 6 5. Fall Risk: Dizziness: N Needs help standing or walking: N Fallen in the last 3 months: N Fall risk comments: 6. Patient on Blood Thinner: None 7. History of Hypertension: N 8. Opioid Therapy greater than 6 weeks: Y Opiate Contract Signed: 9. Risk Assessment Tool Provided: LOW RISK 1 10. Functional Assessment Tool: 38 11. Recreational Drug Use: Never Drug Type: Tobacco Use: Never Smoker Tobacco Type: Amount or Packs/day: How Many Years: Alcohol Use: Yes Frequency: Quant:
== END | disposition home or self-care (01) ==
LOC: PAIN 06:59
PROVIDERS: ATTEND Clinical Nurse Specialist Adult Health
DX: Z45.1 Encounter for adjustment and management of infusion pump (principal); M54.5 Low back pain; M70.62 Trochanteric bursitis, left hip; M70.61 Trochanteric bursitis, right hip; M19.90 Unspecified osteoarthritis, unspecified site; Z98.890 Other specified postprocedural states; Z79.899 Other long term (current) drug therapy; Z88.8 Allergy status to other drugs, medicaments and biological substances; Z91.040 Latex allergy status

== ENCOUNTER → 2020-10-21 | Outpatient (CLI) | payer OTHER, MEDICARE ==
[~2020-10-21] VITALS: Ht 170.2 cm; Wt 130.6 kg
[~2020-10-21] MED LIST changes: +CIMZIA400 MG/2 M SUBQ
[2020-10-21 08:54] VITALS: BP 135/76
--- NOTE | 2020-10-21 09:07 | NUR ---
Pain Clinic Assessment: 1. History of Osteoarthritis: R KNEE R INDEX FINGER B/L SHOULDERS BACK History of Rheumatoid Arthritis: DENIES 2. Height: 5 ft. 7 in. 170.2 cm. Weight: 288.0 lb. oz. 130.636 kg. Patient's BMI: 45.1 3. Vital Signs: BP: 135/76 Pulse: 67 Resp: 14 Temp: 02 Sat: 97 ECG Mon: 4. Pain Intensity: 8 5. Fall Risk: Dizziness: N Needs help standing or walking: N Fallen in the last 3 months: N Fall risk comments: 6. Patient on Blood Thinner: None 7. History of Hypertension: N 8. Opioid Therapy greater than 6 weeks: Y Opiate Contract Signed: 9. Risk Assessment Tool Provided: LOW RISK 1 10. Functional Assessment Tool: 38 11. Recreational Drug Use: Never Drug Type: Tobacco Use: Never Smoker Tobacco Type: Amount or Packs/day: How Many Years: Alcohol Use: Yes Frequency: Special Occasions Quant:
== END | disposition home or self-care (01) ==
LOC: PAIN 06:50
PROVIDERS: ATTEND Anesthesiology Pain Medicine
DX: Z45.1 Encounter for adjustment and management of infusion pump (principal); G89.29 Other chronic pain; M19.90 Unspecified osteoarthritis, unspecified site; Z98.890 Other specified postprocedural states; Z79.899 Other long term (current) drug therapy; Z91.040 Latex allergy status; Z88.8 Allergy status to other drugs, medicaments and biological substances

== ENCOUNTER → 2020-12-07 | Outpatient (CLI) | payer OTHER, MEDICARE | LOC: SJCVC 10:57 | PROVIDERS: ATTEND Internal Medicine Cardiovascular Disease | DX: R94.31 Abnormal electrocardiogram [ECG] [EKG] (principal); I49.3 Ventricular premature depolarization; I10 Essential (primary) hypertension; I25.10 Atherosclerotic heart disease of native coronary artery without angina pectoris; E78.00 Pure hypercholesterolemia, unspecified; Z88.8 Allergy status to other drugs, medicaments and biological substances; Z79.82 Long term (current) use of aspirin; Z79.899 Other long term (current) drug therapy; Z72.89 Other problems related to lifestyle ==

== ENCOUNTER → 2021-02-07 | Outpatient (CLI) | payer OTHER, MEDICARE ==
[~2021-02-07] VITALS: Ht 170.2 cm; Wt 99.8 kg
[~2021-02-07] MED LIST changes: +COZAAR100 MG PO; +STOOL SOFTENER1 EAC2 PO
[2021-02-07 13:21] VITALS: BP 122/72
--- NOTE | 2021-02-07 13:27 | NUR ---
Pain Clinic Assessment: 1. History of Osteoarthritis: R KNEE R INDEX FINGER B/L SHOULDERS BACK History of Rheumatoid Arthritis: DENIES 2. Height: 5 ft. 7 in. 170.2 cm. Weight: 220.0 lb. oz. 99.792 kg. Patient's BMI: 34.4 3. Vital Signs: BP: 122/72 Pulse: 76 Resp: 16 Temp: 02 Sat: 96 ECG Mon: 4. Pain Intensity: 7 5. Fall Risk: Dizziness: N Needs help standing or walking: N Fallen in the last 3 months: N Fall risk comments: 6. Patient on Blood Thinner: None 7. History of Hypertension: N 8. Opioid Therapy greater than 6 weeks: Y Opiate Contract Signed: 9. Risk Assessment Tool Provided: LOW RISK 1 10. Functional Assessment Tool: 38 11. Recreational Drug Use: Never Drug Type: Tobacco Use: Never Smoker Tobacco Type: Amount or Packs/day: How Many Years: Alcohol Use: Yes Frequency: Quant:
== END | disposition home or self-care (01) ==
LOC: PAIN 06:58
PROVIDERS: ATTEND Clinical Nurse Specialist Adult Health
DX: Z45.1 Encounter for adjustment and management of infusion pump (principal); G89.29 Other chronic pain; M19.90 Unspecified osteoarthritis, unspecified site; Z98.890 Other specified postprocedural states; Z79.899 Other long term (current) drug therapy; Z88.8 Allergy status to other drugs, medicaments and biological substances

== ENCOUNTER → 2021-03-02 | Outpatient (CLI) | payer OTHER, MEDICARE | LOC: SJCVC 11:54 | PROVIDERS: ATTEND Internal Medicine Cardiovascular Disease | DX: I25.10 Atherosclerotic heart disease of native coronary artery without angina pectoris (principal); I10 Essential (primary) hypertension; E78.00 Pure hypercholesterolemia, unspecified; K21.9 Gastro-esophageal reflux disease without esophagitis; E27.40 Unspecified adrenocortical insufficiency; R53.83 Other fatigue; M54.6 Pain in thoracic spine; G89.29 Other chronic pain; E78.5 Hyperlipidemia, unspecified; N40.0 Benign prostatic hyperplasia without lower urinary tract symptoms; M47.26 Other spondylosis with radiculopathy, lumbar region; G47.33 Obstructive sleep apnea (adult) (pediatric); E23.0 Hypopituitarism; Z72.89 Other problems related to lifestyle; Z79.82 Long term (current) use of aspirin; Z79.899 Other long term (current) drug therapy; Z88.8 Allergy status to other drugs, medicaments and biological substances ==

== ENCOUNTER → 2021-03-31 | Outpatient (CLI) | payer OTHER, MEDICARE ==
[~2021-03-31] VITALS: Ht 170.2 cm; Wt 104.1 kg
[~2021-03-31] MED LIST changes: +TESTOPEL75 MG SUBQ
[2021-03-31 15:01] VITALS: BP 143/76
--- NOTE | 2021-03-31 15:20 | NUR ---
Pain Clinic Assessment: 1. History of Osteoarthritis: R KNEE R INDEX FINGER B/L SHOULDERS BACK History of Rheumatoid Arthritis: DENIES 2. Height: 5 ft. 7 in. 170.2 cm. Weight: 229.6 lb. oz. 104.146 kg. Patient's BMI: 36.0 3. Vital Signs: BP: 143/76 Pulse: 65 Resp: 14 Temp: 02 Sat: 98 ECG Mon: 4. Pain Intensity: 7 5. Fall Risk: Dizziness: N Needs help standing or walking: N Fallen in the last 3 months: N Fall risk comments: 6. Patient on Blood Thinner: None 7. History of Hypertension: N 8. Opioid Therapy greater than 6 weeks: Y Opiate Contract Signed: 9. Risk Assessment Tool Provided: LOW RISK 1 10. Functional Assessment Tool: 38 11. Recreational Drug Use: Never Drug Type: Tobacco Use: Never Smoker Tobacco Type: Amount or Packs/day: How Many Years: Alcohol Use: Yes Frequency: Quant:
== END | disposition home or self-care (01) ==
LOC: PAIN 09:35
PROVIDERS: ATTEND Anesthesiology Pain Medicine
DX: Z45.1 Encounter for adjustment and management of infusion pump (principal); G89.29 Other chronic pain; M79.18 Myalgia, other site; M19.90 Unspecified osteoarthritis, unspecified site; Z98.890 Other specified postprocedural states; Z79.899 Other long term (current) drug therapy; Z88.8 Allergy status to other drugs, medicaments and biological substances; Z91.040 Latex allergy status

== ENCOUNTER → 2021-04-21 | Outpatient (CLI) | payer OTHER, MEDICARE ==
[~2021-04-21] VITALS: Ht 170.2 cm; Wt 103.4 kg
[2021-04-21 10:17] VITALS: BP 137/75
--- NOTE | 2021-04-21 10:24 | NUR ---
Pain Clinic Assessment: 1. History of Osteoarthritis: R KNEE R INDEX FINGER B/L SHOULDERS BACK History of Rheumatoid Arthritis: DENIES 2. Height: 5 ft. 7 in. 170.2 cm. Weight: 228.0 lb. oz. 103.420 kg. Patient's BMI: 35.7 3. Vital Signs: BP: 137/75 Pulse: 63 Resp: 16 Temp: 02 Sat: 100 ECG Mon: 4. Pain Intensity: 7 5. Fall Risk: Dizziness: N Needs help standing or walking: N Fallen in the last 3 months: N Fall risk comments: 6. Patient on Blood Thinner: None 7. History of Hypertension: N 8. Opioid Therapy greater than 6 weeks: Y Opiate Contract Signed: 9. Risk Assessment Tool Provided: LOW RISK 1 10. Functional Assessment Tool: 38 11. Recreational Drug Use: Never Drug Type: Tobacco Use: Never Smoker Tobacco Type: Amount or Packs/day: How Many Years: Alcohol Use: Yes Frequency: Special Occasions Quant: 1
== END | disposition home or self-care (01) ==
LOC: PAIN 09:55
PROVIDERS: ATTEND Anesthesiology Pain Medicine
DX: Z45.1 Encounter for adjustment and management of infusion pump (principal); G89.29 Other chronic pain; M54.16 Radiculopathy, lumbar region; M96.1 Postlaminectomy syndrome, not elsewhere classified; M19.90 Unspecified osteoarthritis, unspecified site; Z98.890 Other specified postprocedural states; Z79.899 Other long term (current) drug therapy; Z91.040 Latex allergy status; Z88.8 Allergy status to other drugs, medicaments and biological substances